=== PATIENT | female | born 1955 | race African-American/Black ===

== ENCOUNTER 2025-02-04 00:47 | Day surgery (SDC) | payer MEDICARE, SELFPAY ==
[2025-01-13 15:02] VITALS: BMI 25.9
--- OUTSIDE RECORDS SUMMARY | 2025-01-24 02:41 | XMS_ITS | CONTINUITY OF CARE DOCUMENT ---
Author Name dario bishop Address Unknown Organization [facility] Address [address] [place] [address] [address] [place] [address] Phone [phone] Care Team Providers Care Workers Compensation Claims Assistant Name Role Phone Boogie DINERO, Patito Unavailable IVÁN DAVIS MD Unavailable IVÁN DAVIS MD Unavailable PROBLEMS Condition Status Date Provider Notes GASTROESOPHAGEAL REFLUX DISEASE active [facility] CORONARY ARTERY DISEASE, FAM KAYLEE HX active [facility] FATHER PASSED AT AGE 60 YEARS HYPERLIPIDEMIA active [facility] DIABETES MELLITUS active [facility] DIAPHORESIS active [facility] CHEST PAIN-RESOLVED. NEG NUC , EF 65% 02/22 active ? Patito Hyman MD HYPERTENSION- MILD LVH, DIASTOLIC DYSFUNCTION, EF 65% 02/22 active ? Patito Hyman MD SYNCOPE NL ECHO AND STRESS T EST IN 07/25 active Patito Hyman MD DEPRESSION LEXAPRO 20 MG active Patito caceres MD ENCOUNTERS Date Type Provider Location Encounter Diag nosis - In-person encounter Office Visit Pat[facility] SYNCOPE NL ECHO AND STRESS TEST IN 07/25DEPRESSION LEXAPRO 20 MG - In-person encounter Office Visit Patito Hyman MD [facility] CHEST PAIN-RESOLVED. NEG NUC, EF 65% 02/22HYPERTENSION- MILD LVH, DIASTOLIC DYSFUNCTION, EF 65% 02/22DEPRESSION LEXAPRO 20 MG VITAL SIGNS Date Observation Value Provider pulse rate 84 /min Mally Elva oxygen saturation, oximetry 97 % Mally Elva respiratory rate E&M 19 /min Mally Elva weight E&M 207 [lb_av] Mally Elva blood pressure, diastolic 73 mm[Hg] Fe josé luis [place] blood pressure, systolic 109 mm[Hg] Fel icia Elva blood pressure, diastolic 78 mm[Hg] Ca rol Ab blood pressure, systolic 127 mm[Hg] Car mukesh MannAb pulse rate 97 /min Kelly MannAb oxygen saturation, oximetry 98 % Kelly MannAb respiratory rate E&M 20 /min Kelly Zepeda ryanermann weight E&M 206 [lb_av] Kelly Ab ALLERGIES Allergy Name Onset Date Reaction Criticality Status PREDNISONE High Criticality active LIDOCAINE High Criticality active HISTORY OF MEDICATION USE Medication Status Instructions Dates Provider Indications Com ments LEXAPRO 20 MG ORAL TABLET active ONE TAB. DAILY Patito Hyman MD POTASSIUM CHLORIDE KEVEN ER 20 MEQ ORAL TABLET EXTENDED RELEASE active ONE TAB. 2 TIMES DAILY Kelly Berger GLIMEPIRIDE 4 MG ORAL TABLET active ONE TAB DAILY Lucinda Cape CRESTOR 10 MG ORAL TABLET active ONE TAB. DAILY Patito Hyman MD LISINOPRIL 40 MG ORAL TABLET active ONE TAB. DAILY Lucinda [facility] METFORMIN HCL 500 MG ORAL TABLET completed ONE TAB TWICE DAILY - Kelly Berger HYDROCHLOROTHIAZIDE 25 MG ORAL TABLET active ONE TAB DAILY Lucinda Cape FAMOTIDINE 40 MG ORAL TABLET active ONE TAB. DAILY Lucinda Cape ASPIRIN 81 MG ORAL TABLET active ONE TAB. DAILY Lucinda Cape SOCIAL HISTORY Date Observation Value Provider social history reviewed E&M reviewed Patito Hyman MD social history E&M Marital Status: Divorc ed Christy Martinez RN alcohol use, average drinks per day none Christy Martinez RN physical exercise, f requency, days per week no Christy Martinez RN drug use none Christy todd RN smoking status Non-Smoker Christywest argueta RN social history reviewed E&M reviewed Christy Martinez RN MENTAL STATUS Date Observation Value Provider assessment of judgme nt and insight E&M Alert and oriented to time, place and person. Mood and affect are normal. Patito Hyman MD assessment of judgme nt and insight E&M Alert and oriented to time, place and person. Mood and affect are normal. Christy Martinez RN INSURANCE PROVIDERS Payer name Policy type / Coverage type [place] red green party ID [employer] MEDICARE ADVANTAGE ([facility] COMPLETE PPO) Other [id number] TREATMENT PLAN Date Name Performer routine f/u : H er updated medication list for this problem includes: Famotidine 40 Mg Tabs (Famotidine) ..... One tab. daily BP today: 109/73 Prior BP: 127/78 (04/06/2008) D iscussed lifestyle modifications, diet, antacids/medications, and preventive measures. Handout provided. Patito Hyman MD routine f/u : H er updated medication list for this problem includes: Aspirin 81 Mg Tabs (Aspirin) ..... One tab. daily Lisinopril 40 Mg Tabs (Lisinopril) ..... One tab. daily BP today: 109/73 Prior BP: 127/78 (04/06/2008) N uclear Stress Findings: 1. Normal exercise capacity 2 . Normal hemodynamic response to exercise 3 . No diagnostic ST or T changes 4 . No significant arrhythmias 5 . There is no evidence for exercise-induced myocardial ischemia 6 . Resting BP = 122/84 Max BP = 166/74 % Max HR achieved = 95 % METs achieved = 6.0 7 . Small inferoapical defect probably secondary to diaphraghmatic attenuation (03/16/2008) E chocardiogram: The left ventricular chamber size is normal. W all thickness is increased consistent with mild concentric left ventricular hypertrophy. T here is E: A reversal of mitral inflow velocities consistent with diastolic dysfunction. L V EF is estimated at 65%. N o clinically significant valvular abnormalities. M inimal tricuspid regurgitation. (03/16/2008) Patito Hyman MD routine f/u Patito Hyman MD routine f/u : H er updated medication list for this problem includes: Aspirin 81 Mg Tabs (Aspirin) ..... One tab. daily Hydrochlorothiazide 25 Mg Tabs (Hydrochlorothiazide) ..... One tab daily Lisinopril 40 Mg Tabs (Lisinopril) ..... One tab. daily BP today: 109/73 Prior BP: 127/78 (04/06/2008) N uclear Stress Findings: 1. Normal exercise capacity 2 . Normal hemodynamic response to exercise 3 [address] or T changes 4 . No significant arrhythmias 5 . There is no evidence for exercise-induced myocardial ischemia 6 . Resting BP = 122/84 Max BP = 166/74 % Max HR achieved = 95 % METs achieved = 6.0 7 . Small inferoapical defect probably secondary to diaphraghmatic attenuation (03/16/2008) E chocardiogram: The left ventricular chamber size is normal. W all thickness is increased consistent with mild concentric left ventricular hypertrophy. T here is E: A reversal of mitral inflow velocities consistent with diastolic dysfunction. L V EF is estimated at 65%. N o clinically significant valvular abnormalities. M inimal tricuspid regurgitation. (03/16/2008) Patito Hyman MD F/U: T he following medications were removed from the medication list: Metformin Hcl 500 Mg Tabs (Metformin hcl) ..... One tab twice daily Her updated medication list for this problem includes: Aspirin 81 Mg Tabs (Aspirin) ..... One tab. daily Lisinopril 40 Mg Tabs (Lisinopril) ..... One tab. daily Glimepiride 4 Mg Tabs (Glimepiride) ..... One tab daily BP today: 127/78 Prior BP: / () Patito Hyman MD F/U Patito Hyman MD F/U: H er updated medication list for this problem includes: Aspirin 81 Mg Tabs (Aspirin) ..... One tab. daily Hydrochlorothiazide 25 Mg Tabs (Hydrochlorothiazide) ..... One tab daily Lisinopril 40 Mg Tabs (Lisinopril) ..... One tab. daily BP today: 127/78 Patito Hyman MD F/U: H er updated medication list for this problem includes: Aspirin 81 Mg Tabs (Aspirin) ..... One tab. daily Lisinopril 40 Mg Tabs (Lisinopril) ..... One tab. daily BP today: 127/78 Prior BP: / () N uclear Stress Findings: 1. Normal exercise capacity 2 . Normal hemodynamic response to exercise 3 . No [address] or T changes 4 . No significant arrhythmias 5 . There is no evidence for exercise-induced myocardial ischemia 6 . Resting BP = 122/84 Max BP = 166/74 % Max HR achieved = 95 % METs achieved = 6.0 7 . Small inferoapical defect probably secondary to diaphraghmatic attenuation (03/16/2008) E chocardiogram: The left ventricular chamber size is normal. W all thickness is increased consistent with mild concentric left ventricular hypertrophy. T here is E: A reversal of mitral inflow velocities consistent with diastolic dysfunction. L V EF is estimated at 65%. N o clinically significant valvular abnormalities. M inimal tricuspid regurgitation. (03/16/2008) Patito Hyman MD Date Name Complete Echo
--- OUTSIDE RECORDS SUMMARY | 2025-01-24 02:41 | XMS_ITS | Data Portability ---
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 Plan of Treatment Reminders Order Date Submit Date Provider Last Modified By Organization Details Last Modified Time Details Appointments None recorded. Lab None recorded. Referral nephrologis t referral - secondary hyperparath yroidism 2022 023 [place], [address], [address], [place], [address], 3 15:55:16 Procedures None recorded. Surgeries None recorded. Imaging None recorded. Medication Orders Ozempic 1 mg/dose (4 mg/3 mL) subcutaneou s pen injector 2022 023 GUSTABO Not available 3 12:22:27 Jardiance 25 mg tablet 2022 023 GUSTABO Not available 3 12:22:44 Tresiba FlexTouch U-100 insulin 100 unit/mL (3 mL) subcutaneou s pen 2022 023 GUSTABO Not available 3 12:23:37 glimepiride 1 mg tablet 2022 023 Not available 3 12:25:06 OneTouch Verio test strips 2022 023 GUSTABO Not available 3 12:27:54 atorvastati n 40 mg tablet 2022 023 GUSTABO Not available 12:26:20 Patient TargetsNo targets recorded. Patient InstructionsNo instructions recorded. 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 0 high Diabe nevin Scree emanuel Crite dillon: <5.7% Consi stent with absen ce of diabe nevin 5.7-6 .4% Consi stent with incre ased risk for diabe nevin (pred iabet es) >OR=6 .5% Consi stent with diabe nevin REFER ENCE: Diabe nevin Care 2016, 39(Winter ppl.1 ):s13 -s22 Not Available [facility] (Lab) [address] [place], [address], 12/06/2021 19:39:44 12/07/19 22 12/06/2021 TSH thyroid-stim ulating hormone 0.606 uIU/m L 0.465- 4.680 Not Available [facility] (Lab) [address] [place], [address], 12/06/2021 17:40:26 12/07/19 22 12/06/2021 T4 FREE free T4 1.41 NG/dL 0.78-2 .19 Not Available [facility] (Lab) [address] [place], [address], 12/06/2021 17:31:28 12/07/19 22 12/06/2021 MICRO ALBUM N RNDM W/CRE AT RATIO ur creat 153.30 mg/dL REFER ENCE RANGE NOT ESTAB LISHE D FOR RANDO M URINE CREAT ININE Not Available [facility] (Lab) [address] [place], [address], 12/06/2021 17:26:24 12/07/19 22 12/06/2021 MICRO ALBUM N RNDM W/CRE AT RATIO microalbumin , urine 6.6 mg/L 0.0-16 .6 Not Available [facility] (Lab) [address] [place], [address], 12/06/2021 17:26:24 12/07/19 22 12/06/2021 MICRO ALBUM N RNDM W/CRE AT RATIO microalbumin /creatinine ratio 4 mcg/m g 0-29 THE AMERI CAN DIABE NEVIN ASSOC IATIO N DEFIN ES ABNOR MALIT IES IN ALBUM IN EXCRE TION FOLLO WS: CATEG ORY RESUL T (MCG/ MG CREAT ININE ) RENATO L <30 MICRO ALBUM INURI A 30-29 9 CLINI ADARSH ALBUM INURI A > OR = 300 THE ADA RECOM MENDS THAT 2 OF 2 SPECI MENS COLLE CTED WITHI N A 3- TO 6-MON TH PERIO D BE ABNOR MAL BEFOR E CONSI ZACARIAS G A PATIE NT TO HAVE CROSS ED ONE OF THESE DIAGN OSTIC THRES HOLDS . REFER ENCE: DIABE NEVIN CARE, VOL. 26: S94-S , 2002 Not Available [facility] (Lab) [address] [place], [address], 12/06/2021 17:26:24 12/07/19 22 12/06/2021 COMPR EHENS JÚNIOR METAB OLIC PANEL sodium 137 mmol/ L 137-14 5 Not Available [facility] (Lab) [address] [place], [address], 12/06/2021 17:10:51 12/07/19 22 12/06/2021 COMPR EHENS JÚNIOR METAB OLIC PANEL potassium 4.2 mmol/ L 3.5-5. 1 Not Available [facility] (Lab) [address] [place], [address], 12/06/2021 17:10:51 12/07/19 22 12/06/2021 COMPR EHENS JÚNIOR METAB OLIC PANEL chloride 100 mmol/ L 98-107 Not Available [facility] (Lab) [address] [place], [address], 12/06/2021 17:10:51 12/07/19 22 12/06/2021 COMPR EHENS JÚNIOR METAB OLIC PANEL carbon dioxide 26 mmol/ L 22-30 Not Available [facility] (Lab) [address] [place], [address], 12/06/2021 17:10:51 12/07/19 22 12/06/2021 COMPR EHENS JÚNIOR METAB OLIC PANEL anion gap 15.2 mmol/ L 14-22 Not Available [facility] (Lab) [address] [place], [address], 12/06/2021 17:10:51 12/07/19 22 12/06/2021 COMPR EHENS JÚNIOR METAB OLIC PANEL glucose 187 mg/dL 70-99 high Not Available [facility] (Lab) [address] [place], [address], 12/06/2021 17:10:51 12/07/19 22 12/06/2021 COMPR EHENS JÚNIOR METAB OLIC PANEL BUN 15 mg/dL 8-19 Not Available [facility] (Lab) [address] [place], [address], 12/06/2021 17:10:51 12/07/19 22 12/06/2021 COMPR EHENS JÚNIOR METAB OLIC PANEL creatinine 1.20 mg/dL 0.66-1 .25 Not Available [facility] (Lab) [address] [place], [address], 12/06/2021 17:10:51 12/07/19 22 12/06/2021 COMPR EHENS JÚNIOR METAB OLIC PANEL GFR 54 Refer ence Range : Rickman ge GFR Healt hy Adult : >60 mL/mi n/1.7 3 m2 Chron ic Kidne y Disea se: 15-60 mL/mi n/1.7 3 m2 Kidne y Failu re: <15/m L/min /1.73 m2 www.n iddk. nih.g ov The MDRD study equat ion has not been valid ated in child kesha <18 years of age; pregn ant women ; the elder ly >85 years of age; or in some racia l or ethni c subgr oups, such as Hispa nics. Outsi de the valid ated devon eters , estim ated GFR is less accur ate, requi ring clini adarsh judgm ent on a case- by-ca se basis . Clini adarsh inter preta tion for other races and ages must be made by the clini trae. The MDRD study equat ion has not been valid ated for the evalu ation of serum creat inine relat ed to nutri archie l statu s or medic ation usage . For perso ns <18 years of age, a pedia tric GFR calcu lator is avail able on the [facility] websi te: https ://ww w.kid yony.o rg/pr ofess ional s/kdo qi/gf r_cal culat or Not Available [facility] (Lab) [address] [place], [address], 12/06/2021 17:10:51 12/07/19 22 12/06/2021 COMPR EHENS JÚNIOR METAB OLIC PANEL alkaline phosphatase 105 U/L 38-126 Not Available [facility] (Lab) [address] [place], [address], 12/06/2021 17:10:51 12/07/19 22 12/06/2021 COMPR EHENS JÚNIOR METAB OLIC PANEL alanine aminotransfe rase 16 U/L 0-35 Not Available [facility] (Lab) [address] [place], [address], 12/06/2021 17:10:51 12/07/19 22 12/06/2021 COMPR EHENS JÚNIOR METAB OLIC PANEL aspartate aminotransfe rase 28 U/L 15-37 Not Available [facility] (Lab) [address] [place], [address], 12/06/2021 17:10:51 12/07/19 22 12/06/2021 COMPR EHENS JÚNIOR METAB OLIC PANEL bilirubin, total 0.60 mg/dL 0.20-1 .30 Not Available [facility] (Lab) [address] [place], [address], 12/06/2021 17:10:51 12/07/19 22 12/06/2021 COMPR EHENS JÚNIOR METAB OLIC PANEL calcium 9.1 mg/dL 8.4-10 .2 Not Available [facility] (Lab) [address] [place], [address], 12/06/2021 17:10:51 12/07/19 22 12/06/2021 COMPR EHENS JÚNIOR METAB OLIC PANEL total protein 8.2 g/dL 6.3-8. 2 Not Available [facility] (Lab) [address] [place], [address], 12/06/2021 17:10:51 12/07/19 22 12/06/2021 COMPR EHENS JÚNIOR METAB OLIC PANEL albumin 4.1 g/dL 3.0-4. 4 Not Available [facility] (Lab) [address] [place], [address], 12/06/2021 17:10:51 12/07/19 22 12/06/2021 COMPR EHENS JÚNIOR METAB OLIC PANEL globulin 4.1 g/dL 2.6-4. 2 Not Available [facility] (Lab) [address] [place], [address], 12/06/2021 17:10:51 12/07/19 22 12/06/2021 COMPR EHENS JÚNIOR METAB OLIC PANEL A/G ratio 1.0 ratio 1.0-2. 0 Not Available [facility] (Lab) [address] [place], [address], 12/06/2021 17:10:51 12/07/19 22 12/06/2021 LIPID PANEL cholesterol 150 mg/dL 140-19 9 NIH SANDIP NSUS RECOM MENDA TION FOR PRINCE STERO L: ADULT CHILD LOW RISK: <200 <170 BORDE RLINE : <200- 239 ----- HIGH RISK: >240 >200 Not Available [facility] (Lab) [address] [place], [address], 12/06/2021 17:10:45 12/07/19 22 12/06/2021 LIPID PANEL triglyceride s 120 mg/dL 0-150 NIH SANDIP NSUS REPOR T RECOM MENDA TION FOR TRIGL YCERI JOSE ARMANDO: ADULT CHILD LOW RISK: <150 ----- BODER LINE: 150-1 99 ----- HIGH RISK: >200 ----- Not Available [facility] (Lab) [address] [place], [address], 12/06/2021 17:10:45 12/07/19 22 12/06/2021 LIPID PANEL HDL cholesterol 47 mg/dL 40- Not Available [facility] (Lab) [address] [place], [address], 12/06/2021 17:10:45 12/07/19 22 12/06/2021 LIPID PANEL LDL cholesterol, calculated 79 mg/dL 0-130 NIH SANDIP NSUS REPOR T RECOM MENDA TIONS FOR LDL: ADULT CHILD LOW RISK <130 <110 (OPTI MAL LDL) <100 ----- BORDE RLINE : 130-1 59 ----- HIGH RISK: >160 >130 A TRIGL YCERI DE RESUL T >400 INVAL IDATE S THE CALCU LATIO N FOR LDL FRACT IONAT ION - THE LDL RESUL T WILL NOT BE REPOR BEST. Not Available [facility] (Lab) [address] [place], [address], 12/06/2021 17:10:45 12/06/19 23 12/05/2022 PARAT HY.HO RM(PT H)INT ACT-W /O CA intact parathyroid hormone 135.0 pg/mL 24.0-7 8.0 high Pleas e note new refer ence range effec tive 09/13 . Not Available [facility] (Lab) [address] [place], [address], 12/05/2022 11:50:57 12/06/19 23 12/05/2022 VITAM IN D 25-HY DROXY [id number] 44.6 NG/mL 30-100 Vitam in D Statu s: Defic ient: <20 ng/mL Insuf ficie nt: 20-29 ng/mL Suffi cient : 30-10 0 ng/mL Not Available [facility] (Lab) [address] [place], [address], 12/05/2022 11:51:11 12/06/19 23 12/05/2022 COMPR EHENS JÚNIOR METAB OLIC PANEL sodium 137 mmol/ L 137-14 5 Not Available [facility] (Lab) [address] [place], [address], 12/05/2022 11:58:25 12/06/19 23 12/05/2022 COMPR EHENS JÚNIOR METAB OLIC PANEL potassium 4.2 mmol/ L 3.5-5. 1 Not Available [facility] (Lab) [address] [place], [address], 12/05/2022 11:58:25 12/06/19 23 12/05/2022 COMPR EHENS JÚNIOR METAB OLIC PANEL chloride 101 mmol/ L 98-107 Not Available [facility] (Lab) [address] [place], [address], 12/05/2022 11:58:25 12/06/19 23 12/05/2022 COMPR EHENS JÚNIOR METAB OLIC PANEL carbon dioxide 29 mmol/ L 22-30 Not Available [facility] (Lab) [address] [place], [address], 12/05/2022 11:58:25 12/06/19 23 12/05/2022 COMPR EHENS JÚNIOR METAB OLIC PANEL anion gap 11.2 mmol/ L 14-22 low Not Available [facility] (Lab) [address] [place], [address], 12/05/2022 11:58:25 12/06/19 23 12/05/2022 COMPR EHENS JÚNIOR METAB OLIC PANEL glucose 108 mg/dL 70-99 high Not Available [facility] (Lab) [address] [place], [address], 12/05/2022 11:58:25 12/06/19 23 12/05/2022 COMPR EHENS JÚNIOR METAB OLIC PANEL BUN 16 mg/dL 8-19 Not Available [facility] (Lab) [address] [place], [address], 12/05/2022 11:58:25 12/06/19 23 12/05/2022 COMPR EHENS JÚNIOR METAB OLIC PANEL creatinine 1.21 mg/dL 0.66-1 .25 Not Available [facility] (Lab) [address] [place], [address], 12/05/2022 11:58:25 12/06/19 23 12/05/2022 COMPR EHENS JÚNIOR METAB OLIC PANEL GFR 54 Refer ence Range : Rickman ge GFR Healt hy Adult : >60 mL/mi n/1.7 3 m2 Chron ic Kidne y Disea se: 15-60 mL/mi n/1.7 3 m2 Kidne y Failu re: <15/m L/min /1.73 m2 www.n iddk. nih.g ov The MDRD study equat ion has not been valid ated in child kesha <18 years of age; pregn ant women ; the elder ly >85 years of age; or in some racia l or ethni c subgr oups, such as Hispa nics. Outsi de the valid ated devon eters , estim ated GFR is less accur ate, requi ring clini adarsh judgm ent on a case- by-ca se basis . Clini adarsh inter preta tion for other races and ages must be made by the clini trae. The MDRD study equat ion has not been valid ated for the evalu ation of serum creat inine relat ed to nutri archie l statu s or medic ation usage . For perso ns <18 years of age, a pedia tric GFR calcu lator is avail able on the [facility] websi te: https ://ww w.kid yony.o rg/pr ofess ional s/kdo qi/gf r_cal culat or Not Available [facility] (Lab) [address] [place], [address], 12/05/2022 11:58:25 12/06/19 23 12/05/2022 COMPR EHENS JÚNIOR METAB OLIC PANEL alkaline phosphatase 89 U/L 38-126 Not Available [facility] (Lab) [address] [place], [address], 12/05/2022 11:58:25 12/06/19 23 12/05/2022 COMPR EHENS JÚNIOR METAB OLIC PANEL alanine aminotransfe rase 49 U/L 0-35 high Not Available [facility] (Lab) [address] [place], [address], 12/05/2022 11:58:25 12/06/19 23 12/05/2022 COMPR EHENS JÚNIOR METAB OLIC PANEL aspartate aminotransfe rase 52 U/L 15-37 high Not Available [facility] (Lab) [address] [place], [address], 12/05/2022 11:58:25 12/06/19 23 12/05/2022 COMPR EHENS JÚNIOR METAB OLIC PANEL bilirubin, total 0.80 mg/dL 0.20-1 .30 Not Available [facility] (Lab) [address] [place], [address], 12/05/2022 11:58:25 12/06/19 23 12/05/2022 COMPR EHENS JÚNIOR METAB OLIC PANEL calcium 9.3 mg/dL 8.4-10 .2 Not Available [facility] (Lab) [address] [place], [address], 12/05/2022 11:58:25 12/06/19 23 12/05/2022 COMPR EHENS JÚNIOR METAB OLIC PANEL total protein 8.4 g/dL 6.3-8. 2 high Not Available [facility] (Lab) [address] [place], [address], 12/05/2022 11:58:25 12/06/19 23 12/05/2022 COMPR EHENS JÚNIOR METAB OLIC PANEL albumin 4.2 g/dL 3.0-4. 4 Not Available [facility] (Lab) [address] [place], [address], 12/05/2022 11:58:25 12/06/19 23 12/05/2022 COMPR EHENS JÚNIOR METAB OLIC PANEL globulin 4.2 g/dL 2.6-4. 2 Not Available [facility] (Lab) [address] [place], [address], 12/05/2022 11:58:25 12/06/19 23 12/05/2022 COMPR EHENS JÚNIOR METAB OLIC PANEL A/G ratio 1.0 ratio 1.0-2. 0 Not Available [facility] (Lab) [address] [place], [address], 12/05/2022 11:58:25 12/06/19 23 12/05/2022 LIPID PANEL cholesterol 147 mg/dL 140-19 9 NIH SANDIP NSUS RECOM MENDA TION FOR PRINCE STERO L: ADULT CHILD LOW RISK: <200 <170 BORDE RLINE : <200- 239 ----- HIGH RISK: >240 >200 Not Available [facility] (Lab) [address] [place], [address], 12/05/2022 11:58:31 12/06/19 23 12/05/2022 LIPID PANEL triglyceride s 118 mg/dL 0-150 NIH SANDIP NSUS REPOR T RECOM MENDA TION FOR TRIGL YCERI JOSE ARMANDO: ADULT CHILD LOW RISK: <150 ----- BODER LINE: 150-1 99 ----- HIGH RISK: >200 ----- Not Available [facility] (Lab) [address] [place], [address], 12/05/2022 11:58:31 12/06/19 23 12/05/2022 LIPID PANEL HDL cholesterol 50 mg/dL 40- Not Available [facility] (Lab) [address] [place], [address], 12/05/2022 11:58:31 12/06/19 23 12/05/2022 LIPID PANEL LDL cholesterol, calculated 73 mg/dL 0-130 NIH SANDIP NSUS REPOR T RECOM MENDA TIONS FOR LDL: ADULT CHILD LOW RISK <130 <110 (OPTI MAL LDL) <100 ----- BORDE RLINE : 130-1 59 ----- HIGH RISK: >160 >130 A TRIGL YCERI DE RESUL T >400 INVAL IDATE S THE CALCU LATIO N FOR LDL FRACT IONAT ION - THE LDL RESUL T WILL NOT BE REPOR BEST. Not Available [facility] (Lab) [address] [place], [address], 12/05/2022 11:58:31 12/06/19 23 12/05/2022 PHOSP HORUS phosphorus 4.1 mg/dL 2.5-4. 5 Not Available [facility] (Lab) [address] [place], [address], 12/05/2022 11:58:33 12/06/19 23 12/05/2022 T4 FREE free T4 1.04 NG/dL 0.78-2 .19 Not Available [facility] (Lab) [address] [place], [address], 12/05/2022 12:02:43 12/06/19 23 12/05/2022 TSH thyroid-stim ulating hormone 1.260 uIU/m L 0.465- 4.680 Not Available [facility] (Lab) [address] [place], [address], 12/05/2022 12:06:04 12/06/19 23 12/05/2022 HEMOG LOBIN A1C HA1C 6.4 % 4.0-6. 0 high Diabe nevin Scree emanuel Crite dillon: <5.7% Consi stent with absen ce of diabe nevin 5.7-6 .4% Consi stent with incre ased risk for diabe nevin (pred iabet es) >OR=6 .5% Consi stent with diabe nevin REFER ENCE: Diabe nevin Care 2016, 39(Winter ppl.1 ):s13 -s22 Not Available [facility] (Lab) [address] [place], [address], 12/05/2022 13:49:15 12/06/19 23 12/05/2022 MICRO ALBUM N RNDM W/CRE AT RATIO ur creat 83.15 mg/dL REFER ENCE RANGE NOT ESTAB LISJONATHAN D FOR RON M URINE CREAT ININE Not Available [facility] (Lab) [address] [place], [address], 12/05/2022 14:25:34 12/06/19 23 12/05/2022 MICRO ALBUM N RNDM W/CRE AT RATIO microalbumin , urine <6.0 mg/L 0.0-16 .6 Not Available [facility] (Lab) [address] [place], [address], 12/05/2022 14:25:34 04/07/20 23 04/07/2023 MICRO ALBUM N RNDM W/CRE AT RATIO ur creat 173.53 mg/dL REFER ENCE RANGE NOT ESTAB LISHE D FOR SUKUMARO M URINE CREAT ININE Not Available [facility] (Lab) [address] [place], [address], 04/07/2023 14:09:19 04/07/20 23 04/07/2023 MICRO ALBUM N RNDM W/CRE AT RATIO microalbumin , urine <6.0 mg/L 0.0-16 .6 Not Available [facility] (Lab) [address] [place], [address], 04/07/2023 14:09:19 04/07/20 23 04/07/2023 PARAT HY.HO RM(PT H)INT ACT-W /O CA intact parathyroid hormone 174.7 pg/mL 24.0-7 8.0 high Pleas e note new refer ence range effec tive 09/13 . Not Available [facility] (Lab) [address] [place], [address], 04/07/2023 14:36:25 04/07/20 23 04/07/2023 COMPR EHENS JÚNIOR METAB OLIC PANEL sodium 141 mmol/ L 137-14 5 Not Available [facility] (Lab) [address] [place], [address], 04/07/2023 14:43:28 04/07/20 23 04/07/2023 COMPR EHENS JÚNIOR METAB OLIC PANEL potassium 3.5 mmol/ L 3.5-5. 1 Not Available [facility] (Lab) [address] [place], [address], 04/07/2023 14:43:28 04/07/20 23 04/07/2023 COMPR EHENS JÚNIOR METAB OLIC PANEL chloride 103 mmol/ L 98-107 Not Available [facility] (Lab) [address] [place], [address], 04/07/2023 14:43:28 04/07/20 23 04/07/2023 COMPR EHENS JÚNIOR METAB OLIC PANEL carbon dioxide 28 mmol/ L 22-30 Not Available [facility] (Lab) [address] [place], [address], 04/07/2023 14:43:28 04/07/20 23 04/07/2023 COMPR EHENS JÚNIOR METAB OLIC PANEL anion gap 13.5 mmol/ L 14-22 low Not Available [facility] (Lab) [address] [place], [address], 04/07/2023 14:43:28 04/07/20 23 04/07/2023 COMPR EHENS JÚNIOR METAB OLIC PANEL glucose 117 mg/dL 70-99 high Not Available [facility] (Lab) [address] [place], [address], 04/07/2023 14:43:28 04/07/20 23 04/07/2023 COMPR EHENS JÚNIOR METAB OLIC PANEL BUN 19 mg/dL 8-19 Not Available [facility] (Lab) [address] [place], [address], 04/07/2023 14:43:28 04/07/20 23 04/07/2023 COMPR EHENS JÚNIOR METAB OLIC PANEL creatinine 1.33 mg/dL 0.66-1 .25 high Not Available [facility] (Lab) [address] [place], [address], 04/07/2023 14:43:28 04/07/20 23 04/07/2023 COMPR EHENS JÚNIOR METAB OLIC PANEL GFR 48 Refer ence Range : Rickman ge GFR Healt hy Adult : >60 mL/mi n/1.7 3 m2 Chron ic Kidne y Disea se: 15-60 mL/mi n/1.7 3 m2 Kidne y Failu re: <15/m L/min /1.73 m2 www.n iddk. nih.g ov The MDRD study equat ion has not been valid ated in child kesha <18 years of age; pregn ant women ; the elder ly >85 years of age; or in some racia l or ethni c subgr oups, such as Hispa nics. Outsi de the valid ated devon eters , estim ated GFR is less accur ate, requi ring clini adarsh judgm ent on a case- by-ca se basis . Clini adarsh inter preta tion for other races and ages must be made by the clini trae. The MDRD study equat ion has not been valid ated for the evalu ation of serum creat inine relat ed to nutri archie l statu s or medic ation usage . For perso ns <18 years of age, a pedia tric GFR calcu lator is avail able on the [facility] websi te: https ://clarita bhakta.o skip/pr ofess ional s/kdo qi/gf r_cal culat or Not Available [facility] (Lab) [address] [place], [address], 04/07/2023 14:43:28 04/07/20 23 04/07/2023 COMPR EHENS JÚNIOR METAB OLIC PANEL alkaline phosphatase 83 U/L 38-126 Not Available [facility] (Lab) [address] [place], [address], 04/07/2023 14:43:28 04/07/20 23 04/07/2023 COMPR EHENS JÚNIOR METAB OLIC PANEL alanine aminotransfe rase 25 U/L 0-35 Not Available [facility] (Lab) [address] [place], [address], 04/07/2023 14:43:28 04/07/20 23 04/07/2023 COMPR EHENS JÚNIOR METAB OLIC PANEL aspartate aminotransfe rase 35 U/L 15-37 Not Available [facility] (Lab) [address] [place], [address], 04/07/2023 14:43:28 04/07/20 23 04/07/2023 COMPR EHENS JÚNIOR METAB OLIC PANEL bilirubin, total 0.90 mg/dL 0.20-1 .30 Not Available [facility] (Lab) [address] [place], [address], 04/07/2023 14:43:28 04/07/20 23 04/07/2023 COMPR EHENS JÚNIOR METAB OLIC PANEL calcium 9.2 mg/dL 8.4-10 .2 Not Available [facility] (Lab) [address] [place], [address], 04/07/2023 14:43:28 04/07/20 23 04/07/2023 COMPR EHENS JÚNIOR METAB OLIC PANEL total protein 7.8 g/dL 6.3-8. 2 Not Available [facility] (Lab) [address] [place], [address], 04/07/2023 14:43:28 04/07/20 23 04/07/2023 COMPR EHENS JÚNIOR METAB OLIC PANEL albumin 4.1 g/dL 3.0-4. 4 Not Available [facility] (Lab) [address] [place], [address], 04/07/2023 14:43:28 04/07/20 23 04/07/2023 COMPR EHENS JÚNIOR METAB OLIC PANEL globulin 3.7 g/dL 2.6-4. 2 Not Available [facility] (Lab) [address] [place], [address], 04/07/2023 14:43:28 04/07/20 23 04/07/2023 COMPR EHENS JÚNIOR METAB OLIC PANEL A/G ratio 1.1 ratio 1.0-2. 0 Not Available [facility] (Lab) [address] [place], [address], 04/07/2023 14:43:28 04/07/20 23 04/07/2023 PHOSP HORUS phosphorus 3.5 mg/dL 2.5-4. 5 Not Available [facility] (Lab) [address] [place], [address], 04/07/2023 14:43:33 04/07/20 23 04/07/2023 LIPID PANEL cholesterol 146 mg/dL 140-19 9 NIH SANDIP NSUS RECOM MENDA TION FOR PRINCE STERO L: ADULT CHILD LOW RISK: <200 <170 BORDE RLINE : <200- 239 ----- HIGH RISK: >240 >200 Not Available [facility] (Lab) [address] [place], [address], 04/07/2023 14:43:38 04/07/20 23 04/07/2023 LIPID PANEL triglyceride s 79 mg/dL 0-150 NIH SANDIP NSUS REPOR T RECOM MENDA TION FOR TRIGL YCERI JOSE ARMANDO: ADULT CHILD LOW RISK: <150 ----- BODER LINE: 150-1 99 ----- HIGH RISK: >200 ----- Not Available [facility] (Lab) [address] [place], [address], 04/07/2023 14:43:38 04/07/20 23 04/07/2023 LIPID PANEL HDL cholesterol 47 mg/dL 40- Not Available [facility] (Lab) [address] [place], [address], 04/07/2023 14:43:38 04/07/20 23 04/07/2023 LIPID PANEL LDL cholesterol, calculated 83 mg/dL 0-130 [facility] SANDIP NSUS REPOR T RECOM MENDA TIONS FOR LDL: ADULT CHILD LOW RISK <130 <110 (OPTI MAL LDL) <100 ----- BORDE RLINE : 130-1 59 ----- HIGH RISK: >160 >130 A TRIGL YCERI DE RESUL T >400 INVAL IDATE S THE CALCU LATIO N FOR LDL FRACT IONAT ION - THE LDL RESUL T WILL NOT BE REPOR BEST. Not Available [facility] (Lab) [address] [place], [address], 04/07/2023 14:43:38 04/07/20 23 04/07/2023 HEMOG LOBIN A1C HA1C 6.3 % 4.0-6. 0 high Diabe nevin Nikolase emanuel Cristeffen idllon: <5.7% Consi stent with absen ce of diabe nevin 5.7-6 .4% Consi stent with incre ased risk for diabe nevin (pred iabet es) >OR=6 .5% Consi stent with diabe nevin REFER ENCE: Diabe nevin Care 2016, 39(Winter ppl.1 ):s13 -s22 Not Available [facility] (Lab) [address] [place], [address], 04/07/2023 14:51:58 04/07/20 23 04/07/2023 T4 FREE free T4 1.20 NG/dL 0.78-2 .19 Not Available [facility] (Lab) [address] [place], [address], 04/07/2023 15:24:35 04/07/20 23 04/07/2023 TSH thyroid-stim ulating hormone 0.417 uIU/m L 0.465- 4.680 low Not Available [facility] (Lab) [address] [place], [address], 04/07/2023 15:25:39 04/07/20 23 04/07/2023 VITAM IN D 25-HY DROXY [id number] 31.1 NG/mL 30-100 Vitam in D Statu s: Defic ient: <20 ng/mL Insuf ficie nt: 20-29 ng/mL Suffi cient : 30-10 0 ng/mL Not Available [facility] (Lab) [address] [place], [address], 04/07/2023 15:53:44 04/09/20 23 04/09/2023 CALCI UM 24 HR URINE ur calcm <1.0 mg/dL REFER ENCE RANGE NOT ESTAB THAIS Beltran FOR RON M URINE CALCI UM Not Available [facility] (Lab) [address] [place], [address], 04/09/2023 22:06:32 04/09/20 23 04/09/2023 CALCI UM 24 HR URINE tot vol 1900 mL 600-20 00 Not Available [facility] (Lab) [address] [place], [address], 04/09/2023 22:06:32 12/11/19 23 03/20/2022 DEXA, axial skele ton No observ ation record ed. [email or web address] [facility] [address] [place], [address], 12/25/2022 17:30:35 Result Notes None recorded. Problems Name Problem SNOMED Code Status Onset Date Resolution Date Notes Provider Name and Address Organization Details Recorded Time Vitamin D deficiency 69208649 Active 2021 Not Available [facility] 3 18:35:19 Dyslipidemia 679101005 Active 2021 Not Available [facility] 3 18:35:19 Type 2 diabetes mellitus 10545152 Active 2018 Not Available [facility] 3 18:35:19 Uncontrolled type 2 diabetes mellitus 849376678 Active 2021 Not Available [facility] 3 18:35:19 Essential hypertension 43195329 Active 2021 Not Available [facility] 3 18:35:19 Hyperparathyr oidism 99742812 Active 2021 Not Available [facility] 3 18:35:19 Candidiasis of vagina 99248686 Active 2021 Not Available [facility] 3 18:35:19 Well controlled type 2 diabetes mellitus 429744742 Active 2022 Ria Louise MD [address], [facility] [address], [place], [address] , [facility] [employer] [facility] 3 12:22:10 Chronic kidney disease 918499676 Active 2022 Ria Louise MD [address], [address], [place], [address] , [place] [facility] 12:25:18 Notes:Some problems listed i n Document: #[id number] could not be added to this patient's chart. Please review this document and add these problems to the patient's chart manually as needed. Problem Notes None recorded. Procedures Surgical History Date Name Laterality Status Provider Name and Address Organization Details Recorded Time parathyroidectomy completed Not Available [facility] 10/16/2022 18:34:45 Imaging Results None recorded. Procedure Notes None recorded. Medical Equipment None Reported. Allergies Allergen ID Allergen Name Allergen Category Reaction Reaction Severity Criticality Documentation Date Start Date Code Code System Note Provider Name and Address Organization Details Recorded Time 23815 prednison e medicatio n Not available Not available Not available 10/16/2022 8640 RxNorm Not Available [facility] 3 18:36:17 42034 lidocaine medicatio n Not available Not available Not available 10/16/2022 6387 RxNorm Not Available [facility] 3 18:36:17 47662 Lantus medicatio n Not available Not available Not available 10/16/2022 51896 1 RxNorm Not Available [facility] 3 18:36:17 Medications Name Sig Start Date Stop Date Status Note LastModified by Organization Details LastModified Time cyclobenzap rine 10 mg tablet TAKE 1 TABLET BY MOUTH AT BEDTIME NEEDED FOR MUSCLE SPASMS 12/10 completed Not Available Not Available Not Available amoxicillin 500 mg capsule 12/10 completed Not Available Not Available Not Available atorvastati n 40 mg tablet TAKE 1 TABLET BY MOUTH EVERY DAY active Not Available Not Available No t Available bupropion HCl SR 150 mg tablet,12 hr sustained-r elease TAKE 1 TABLET BY MOUTH TWICE A DAY WITH MEALS 12/10 completed Not Available Not Available Not Available carvedilol 25 mg tablet TAKE 1 TABLET BY MOUTH TWICE A DAY WITH FOOD active Not Available Not Available No t Available atorvastati n 20 mg tablet TAKE 1 TABLET BY MOUTH EVERY DAY active Not Available Not Available No t Available carvedilol 12.5 mg tablet TAKE 1 TABLET BY MOUTH TWICE DAILY active Not Available Not Available No t Available Child Aspirin 81 mg chewable tablet CHEW 1 TABLET(S) EVERY DAY BY ORAL ROUTE. active Not Available Not Available No t Available polyethylen e glycol 3350 17 gram oral powder packet TAKE 1 PACKET BY MOUTH DAILY. DISSOLVE IN 4-8 OZ OF LIQUID. 12/10 completed Not Available Not Available Not Available lisinopril 20 mg-hydrochl orothiazide 12.5 mg tablet TAKE 1 TABLET BY MOUTH EVERY DAY IN THE MORNING active Not Available Not Available No t Available azithromyci n 250 mg tablet 12/10 completed Not Available Not Available Not Available fluconazole 150 mg tablet TAKE ONE TABLET BY MOUTH NOW AND REPEAT IN 3 DAYS IF SYMPTOMS REMAIN 04/15 completed Not Available Not Available Not Available hydrocodone 5 mg-acetamin ophen 325 mg tablet TAKE 1 TABLET BY MOUTH TWICE A DAY NEEDED FOR PAIN 12/10 completed Not Available Not Available Not Available prazosin 1 mg capsule 12/10 completed Not Available Not Available Not Available lisinopril 20 mg tablet TAKE 1 TABLET BY MOUTH EVERY DAY IN THE MORNING 12/05 completed Not Available Not Available Not Available ondansetron HCl 4 mg tablet TAKE 1 TAB BY MOUTH EVERY 8 HOURS NEEDED FOR NAUSEA 12/10 completed Not Available Not Available Not Available sertraline 100 mg tablet TAKE 1 TABLET TWICE DAILY BEFORE MEALS 12/10 completed Not Available Not Available Not Available quetiapine 200 mg tablet TAKE 1 TABLET BY MOUTH AT BEDTIME 12/10 completed Not Available Not Available Not Available glipizide ER 5 mg tablet, extended release 24 hr 12/05 completed Not Available Not Available Not Available metronidazo le 500 mg tablet TAKE 1 TAB BY MOUTH 3 TIMES DAILY FOR 2 DAYS. active Not Available Not Available No t Available acetaminoph en 300 mg-codeine 30 mg tablet TAKE 1 TO 2 TABLETS BY MOUTH EVERY 4 TO 6 HOURS NEEDED FOR PAIN active Not Available Not Available No t Available omeprazole 40 mg capsule,del ayed release TAKE 1 CAPSULE(S ) EVERY DAY BY ORAL ROUTE FOR 30 DAYS. 12/10 completed Not Available Not Available Not Available tramadol 50 mg tablet TAKE 1 TABLET BY MOUTH TWICE A DAY NEEDED FOR PAIN 12/10 completed Not Available Not Available Not Available triamcinolo ne acetonide 0.1 % topical cream APPLY THIN FILM TO AFFECTED AREA(S) TWICE DAILY UNTIL HEALED active Not Available Not Available No t Available glimepiride 2 mg tablet TAKE 1 TABLET BY MOUTH TWICE A DAY WITH MEALS 04/15 completed Not Available Not Available Not Available glimepiride 1 mg tablet TAKE 1 TABLET BY MOUTH TWICE A DAY BEFORE MEALS active Not Available Not Available No t Available ofloxacin 0.3 % ear drops INSTILL 10 DROPS INTO BOTH EARS TWICE DAILY FOR 10 DAYS 04/15 completed Not Available Not Available Not Available potassium chloride ER 20 mEq tablet,exte nded release(par t/cryst) TAKE 1 TAB BY MOUTH DAILY. 12/10 completed Not Available Not Available Not Available famotidine 20 mg tablet 12/10 completed Not Available Not Available Not Available methocarbam ol 750 mg tablet TAKE 1 TABLET BY MOUTH EVERY 6 HOURS NEEDED FOR SPASM active Not Available Not Available No t Available trazodone 100 mg tablet TAKE 1 2 TABLETS EVERY DAY BY ORAL ROUTE AT BEDTIME 12/10 completed Not Available Not Available Not Available meclizine 25 mg tablet TAKE 1 TABLET BY MOUTH 3 TIMES A DAY NEEDED FOR DIZZINESS active Not Available Not Available No t Available benzonatate 100 mg capsule TAKE 1 CAPSULE BY MOUTH THREE TIMES A DAY NEEDED FOR 5 DAYS 12/10 completed Not Available Not Available Not Available paroxetine 20 mg tablet 12/10 completed Not Available Not Available Not Available trazodone 150 mg tablet TAKE 1 TABLET(S) EVERY DAY BY ORAL ROUTE AT BEDTIME FOR 30 DAYS. active Not Available Not Available No t Available ferrous sulfate 325 mg (65 mg iron) tablet TAKE 1 TABLET BY MOUTH TWICE A DAY 12/10 completed Not Available Not Available Not Available tobramycin 0.3 % eye drops PLACE 1-2 DROPS IN RIGHT EYE EVERY 4 HOURS. active Not Available Not Available No t Available glimepiride 4 mg tablet TAKE 1 TABLET(S) TWICE A DAY BY ORAL ROUTE. 12/10 completed Not Available Not Available Not Available docusate sodium 100 mg capsule TAKE ONE (1) CAPSULE BY MOUTH TWICE DAILY DIRECTED active Not Available Not Available No t Available hydrochloro thiazide 25 mg tablet TAKE 1 TABLET BY MOUTH EVERY DAY 12/05 completed Not Available Not Available Not Available diazepam 10 mg tablet 12/10 completed Not Available Not Available Not Available ibuprofen 600 mg tablet TAKE 1 TAB BY MOUTH EVERY 6 HOURS NEEDED FOR PAIN. 07/30 completed Not Available Not Available Not Available oxycodone-a cetaminophe n 7.5 mg-325 mg tablet 12/10 completed Not Available Not Available Not Available lisinopril 40 mg tablet TAKE 1 TABLET BY MOUTH EVERY DAY 12/05 completed Not Available Not Available Not Available ondansetron 4 mg disintegrat ing tablet TAKE 1 TABLET BY MOUTH EVERY 8 HOURS NEEDED FOR NAUSEA FIRST LINE active Not Available Not Available No t Available cefdinir 300 mg capsule TAKE 2 CAPSULES EVERY DAY BY ORAL ROUTE DIRECTED FOR 10 DAYS. 04/15 completed Not Available Not Available Not Available Grisel Aspirin 325 mg tablet Take 1 tablet every day by oral route. 2018 active Not Available Not Available Not Avai lable glipizide 5 mg tablet TAKE 1 TABLET WITH BREAKFAST , LUNCH, AND SUPPER DAILY 12/05 completed Not Available Not Available Not Available prazosin 2 mg capsule TAKE 1 CAPSULE BY MOUTH EVERY NIGHT AT BEDTIME active Not Available Not Available No t Available naproxen 500 mg tablet TAKE 1 TABLET BY MOUTH TWICE A DAY NEEDED FOR PAIN 12/10 completed Not Available Not Available Not Available metoclopram danis 10 mg tablet 12/10 completed Not Available Not Available Not Available amoxicillin 875 mg-potassiu m clavulanate 125 mg tablet TAKE 1 TABLET BY MOUTH EVERY 12 HOURS DIRECTED FOR 10 DAYS 04/15 completed Not Available Not Available Not Available oxycodone 5 mg tablet TAKE 1 TABLET BY MOUTH EVERY 8 HOURS NEEDED FOR PAIN FOR UPTO 10 DAYS 12/10 completed Not Available Not Available Not Available cyclobenzap rine 5 mg tablet TAKE 1 TABLET (5 MG TOTAL) BY MOUTH 2 (TWO) TIMES A DAY NEEDED FOR MUSCLE SPASMS. 12/10 completed Not Available Not Available Not Available Byetta 5 mcg/dose (250 mcg/mL)1.2 mL subcutaneou s pen injector INJECT 5MCG SUBCUTANE OUSLY TWICE DAILY BEFORE MEALS 04/15 completed Not Available Not Available Not Available Levemir U-100 Insulin 100 unit/mL subcutaneou s solution 12/05 completed Not Available Not Available Not Available BD Ultra-Fine Short Pen Needle 31 gauge x 12/31 USE DAILY WITH TOUJEO AND WEEKLY WITH OZEMPIC active Not Available Not Available No t Available Januvia 50 mg tablet TAKE 1 TABLET BY ORAL ROUTE EVERY DAY active Not Available Not Available No t Available Januvia 100 mg tablet TAKE 1 TABLET BY MOUTH EVERY DAY IN THE MORNING 12/05 completed Not Available Not Available Not Available desvenlafax ine succinate ER 50 mg tablet,exte nded release 24 hr TAKE 1 TABLET BY MOUTH EVERY DAY IN THE MORNING active Not Available Not Available No t Available Xarelto 20 mg tablet TAKE 1 TABLET BY MOUTH EVERY DAY 12/10 completed Not Available Not Available Not Available OneTouch Verio test strips USE DIRECTED THREE TIMES A DAY active Not Available Not Available No t Available BD Insulin Syringe Ultra-Fine 1 mL 31 gauge x 5/16 12/10 completed Not Available Not Available Not Available Farxiga 10 mg tablet TAKE 1 TABLET BY MOUTH EVERY DAY FOR 30 DAYS 04/15 completed Not Available Not Available Not Available Jardiance 25 mg tablet TAKE 1 TABLET BY MOUTH EVERY DAY IN THE MORNING active Not Available Not Available No t Available Trulicity 1.5 mg/0.5 mL subcutaneou s pen injector INJECT 0.5 ML EVERY WEEK BY SUBCUTANE OUS ROUTE WITH MEALS FOR 30 DAYS. 03/03 completed Not Available Not Available Not Available Trulicity 0.75 mg/0.5 mL subcutaneou s pen injector Inject 0.75 mg every week by subcutane ous route for 28 days. 04/15 completed Not Available Not Available Not Available Toujeo SoloStar U-300 Insulin 300 unit/mL (1.5 mL) subcutaneou s pen INJECT 40 UNIT(S) EVERY DAY BY SUBCUTANE OUS ROUTE AT BEDTIME 04/15 completed Not Available Not Available Not Available desvenlafax ine succinate ER 25 mg tablet,exte nded release 24 hr TAKE 1 TABLET BY MOUTH EVERY DAY DIRECTED 12/10 completed Not Available Not Available Not Available Tresiba FlexTouch U-100 insulin 100 unit/mL (3 mL) subcutaneou s pen INJECT 20 UNITS EVERY DAY BY SUBCUTANE OUS ROUTE AT BEDTIME FOR 90 DAYS. active Not Available Not Available No t Available Bychelly BCise 2 mg/0.85 mL subcutaneou s auto-inject or INJECT 2MG BY SUBCUTANE OUS ROUTE EVERY 7 DAYS 12/10 completed Not Available Not Available Not Available Ozempic 0.25 mg or 0.5 mg (2 mg/1.5 mL) subcutaneou s pen injector INJECT 0.5 MG EVERY WEEK BY SUBCUTANE OUS ROUTE WITH MEALS FOR 90 DAYS. 12/10 completed Not Available Not Available Not Available OneTouch Delica Plus Lancet 33 gauge TEST SUGARS THREE TIMES DAILY BEFORE MEALS X 90 DAYS active Not Available Not Available No t Available Ozempic 1 mg/dose (4 mg/3 mL) subcutaneou s pen injector INJECT 1MG SUBCUTANE OUSLY EVERY WEEK active Not Available Not Available No t Available Ozempic 2 mg/dose (8 mg/3 mL) subcutaneou s pen injector Inject 2 mg by subcutane ous route for 84 days. 04/15 completed Not Available Not Available Not Available Vitals Date Recorded Body mass index (BMI) Body height Oxygen saturation Oxygen saturation in Arterial blood by Pulse oximetry Heart rate Body temperature Body weight Systolic blood pressure Diastolic blood pressure Provider Name and Address Organization Details Last Updated DateTime 2 32.1 kg/m2 160.02 cm 98 % 98 % 94 /min 98.3 [degF] 02187.2 2 g 120 mm[Hg] 74 mm[Hg] Not Available [facility] 3 18:35:13 Date Recorded Body mass index (BMI) Body height Oxygen saturation Oxygen saturation in Arterial blood by Pulse oximetry Heart rate Body temperature Body weight Systolic blood pressure Diastolic blood pressure Provider Name and Address Organization Details Last Updated DateTime 2 31.7 kg/m2 160.02 cm 98 % 98 % 80 /min 98 [degF] 96457.0 3 g 110 mm[Hg] 80 mm[Hg] Not Available [facility] 3 18:35:13 Date Recorded Body height Body mass index (BMI) Body weight Body temperature Respiratory rate Heart rate Systolic blood pressure Diastolic blood pressure Provider Name and Address Organization Details Last Updated DateTime 3 160.02 cm 28.9 kg/m2 43548.5 6 g 97.7 [degF] 16 /min 73 /min 143 mm[Hg] 81 mm[Hg] Jammie Anguiano RN [place] [facility] [employer] [facility] 3 12:06:04 Date Recorded Body mass index (BMI) Body height Oxygen saturation Oxygen saturation in Arterial blood by Pulse oximetry Heart rate Body temperature Body weight Systolic blood pressure Diastolic blood pressure Provider Name and Address Organization Details Last Updated DateTime 2 34.2 kg/m2 160.02 cm 99 % 99 % 70 /min 97.7 [degF] 04855.3 3 g 105 mm[Hg] 65 mm[Hg] Not Available [facility] 3 18:35:13 Social History Question Answer Notes LastModified by Row Sham [place] Details LastModified Time Tobacco Smoking Status Never Smoker Not Available [facility] 10/16/2022 18:34:44 Are You Blind Or Do You Have Difficulty Seeing? No [id number] Information not available 10/16/2022 What Is Your Level Of Caffeine Consumption? None [id number] Information not available 10/16/2022 In The 14 Days Before Symptom Onset, Have You Had Close Contact With A Laboratory-confirm ed COVID-19 While That Case Was Ill? No [id number] Information not available 10/16/2022 In The 14 Days Before Symptom Onset, Have You Had Close Contact With A Person Who Is Under Investigation For COVID-19 While That Person Was Ill? No [id number] Information not available 10/16/2022 Are You Deaf Or Do You Have Serious Difficulty Hearing? No [id number] Information not available 10/16/2022 What Type Of Diet Are You Following? REGULAR [id number] Information not available 10/16/2022 What Is Your Relationship Status? Single [id number] Information not available 10/16/2022 Have You Recently Traveled Abroad? No [id number] Information not available 10/16/2022 Do You Have Difficulty Walking Or Climbing Stairs? No [id number] Information not available 10/16/2022 Do You Have Any Dietary Restrictions? No [id number] [id number] Information not available 10/16/2022 Sex: Female Functional Status Question Answer Note LastModified by Organizat ion Details LastModified Time What is your level of alcohol consumption? None [id number] Information not available 10/16/2022 Do you have transportation difficulties? No [id number] Information not available 10/16/2022 Are you able to walk? YESWOREST [id number] [id number] Information not available 10/16/2022 Do you have difficulty doing errands alone? No [id number] [id number] Information not available 10/16/2022 Are you able to care for yourself? Yes [id number] Information not available 10/16/2022 Do you have difficulty dressing or bathing? No [id number] [id number] Information not available 10/16/2022 Mental Status Question Answer Note LastModified by Organizat ion Details LastModified Time Do you have difficulty concentrating, remembering or making decisions? No [id number] Information not available 10/16/2022 Family History Nothing Reported. Medical History Condition Response DIABETES, TYPE Y PARATHYROID DISEASE Y HYPERTENSION Y Gynecological HistoryNo gynecological history recorded. Obstetrics History GPAL:G 0 P 0 0 0 0 Past Encounters Encounter ID Performer Location Encounter Start Date Encounter Closed Date Diagnosis/Indication Diagnosis SNOMED-CT Code Diagnosis ICD10 Code Diagnosis Note [id number] [facility] [address] [place] [address] 12/10/2021 00:00:00 12/10/2021 12:18:37 [id number] [facility] [address] [place] [address] 03/18/2022 00:00:00 03/18/2022 15:48:28 [id number] [facility] [address] [place] [address] 07/30/2022 00:00:00 07/30/2022 15:33:07 [id number] Ria Louise MD [facility] [address] [place] [address] 04/15/2023 11:48:50 04/15/2023 12:51:32 Well controlled type 2 diabetes mellitus 006848722 E11.9 a1c of 6.3% - she is having lows in afternoon- advised to take glimepirid e only if premeals over 150 mg/dL- will drop her dose from 2 mg down to 1 mg before breakfast- she is aware to take half if over 120 mg/dL and to not take if under 120 mg /dl to avoid hypoglycem ia- make sure she is eating and hold if not eating- do not take with dinner. Continue ozempic 1 mg once weekly as patient tolerating well along with jardiance 25 mg daily. Continue tresiba only if fasting glucose over 120 mg/dL consistent ly at lower dose 20 units and less with self titration instructio ns to maintain fasting glucose 90-120 mg/dL. Continue to test 2-3 times daily before meals and maintain log. Chronic ki dney disease [id number] N18.9 She has evidence of secondary hyperparat hyroidism with normal calcium - Cr of 1.3 with GFR of 48 ml/min with no proteinuri a- due to hx of diabetes and CKD would recommend evaluation by nephrology . Dyslipidemia [id number] E 78.5 Continue on statin therapy. Spent up to 25 minutes preparing to see the patient (eg, review of tests), obtaining and/or reviewing separately obtained history, performing a medically appropriat e examinatio n and evaluation , counseling and educating the patient, ordering medication s, tests, along with documentin g clinical informatio n in the electronic health record, independen tly interpreti ng results and communicat ing results to the patient. Patient can be followed by PCP - she/he is aware of my resignatio n and last day of May 30. If needed his/her PCP can refer patient to another endocrinol ogist in the area. All questions /concerns answered and refills necessary at visit today. Health Concerns Section Related Observation LastModified by Organization Detai ls LastModified Time None Recorded Concern Status LastModified by Organization Details LastModified Time None Recorded Advance Directives Directive None Recorded Payers Encounter Date Sequence Insurance Name Policy Number Policy Nash Covered Member ID Nash Member ID Guarantor Name 04/15/2023 1 [facility] (MEDICARE REPLACEMENT/A DVANTAGE - PPO) [id number] Anneliese Zhang [id number] Anneliese Zhang Notes Date Note Type Note Provider Name and Address Organization Details Recorded Time 04/15/2023 text/html 67 yo female com es in for follow up in management of well controlled type 2 DM (A1C of 6.3%), dyslipidemia and secondary hyperparathyroidism . last seen in Jul at that time we continued farxiga (but recommended wipes to reduce risk for infections). We had patient continue tresiba 25-30 units daily and titrate by 2 units every 3 days to maintain FBG 90-130. We switched back to ozempic and now taking 1 mg once weekly. 0.25 mg weekly and increase after 4 weeks to 0.5 mg (samples provided). We continued glimepiride scale. She is now taking jardiance in lieu of farxiga and had no issues with infections on this. She is still on glimepiride scale. She does have a few low sugars in middle of the day. She only takes tresiba when her glucose is elevated- usually takes under 20 units if needed. She is still on ozempic 1 mg once weekly- no nausea or no vomiting.labs from 04/10:24 hour urine calcium very low(bone density from 2021 revealed early osteopenia) vit D 31.1 ng/MLTSH of 0.417 uIU/mlFT4 of 1.2 ng/dLa1c 6.3%146/79/47/83PO4 normalglucose 117 mg/dLCr 1.33 mg/dL with GFR 48 ml/minLFT normalPTH 174 pg/ML with calcium of 9.2 mg/dLmicroalbumin <6 ug/mg Ria Louise MD [address] [facility], [facility] [address], [place], [address], [place] - [place] Seen 04/15/2023 13:03:53 OBGyn Episode No OBEpisode recorded.
--- OUTSIDE RECORDS SUMMARY | 2025-01-24 02:41 | XMS_ITS | Clinical Summary ---
Author Organization [facility] Address [address] [place] [address] Phone Care Team Providers Care Mattress Finisher Name Role Phone Israel Cowan MD Primary Care Provider Allergies Active Allergy Reactions Criticality Noted Date Comments Insulin Glargine Itching 04/07/2018 Pt has severe itching when using insulin Lidocaine Anaphylaxis 10/18/2015 Prednisone Swelling 10/18/2015 Swelling to leg Medications sitaGLIPtin (JANUVIA) 50 MG Tablet Take 50 mg by mouth daily. Active glimepiride (AMARYL) 2 MG Tablet Take 2 mg by mouth 2 times daily. Active carvedilol (COREG) 12.5 MG Tablet Take 12.5 mg by mouth 2 times daily. Active lisinopril (PRINIVIL, ZESTRIL) 40 MG Tablet Take 40 mg by mouth daily. Active sertraline (ZOLOFT) 100 MG Tablet Take 100 mg by mouth daily. Active atorvastatin (LIPITOR) 20 MG Tablet Take 20 mg by mouth daily. Active aspirin 325 MG Tablet Take 325 mg by mouth daily. Active tobramycin (TOBREX) 0.3 % Solution Place 1-2 Drops in right eye every 4 hours. 1 Bottle 0 10/18/19 16 Active Additional Information Patient not taking.Reported on 04/07/2018 ferrous sulfate 325 (65 FE) MG Tablet Take 325 mg by mouth 2 times daily. Active prazosin (MINIPRESS) 2 MG Capsule Take 2 mg by mouth nightly. Active buPROPion (WELLBUTRIN) 150 MG XL tabletIndicatio ns:PTSD Take 150 mg by mouth daily. Indications: PTSD Active docusate sodium (COLACE) 100 MG Capsule Take 1 Cap by mouth daily. 180 Cap 3 11/03/19 16 Active Additional Information Patient not taking.Reported on 04/07/2018 polyethylene glycol (GLYCOLAX, MIRALAX) Pack Take 1 Packet by mouth daily. Dissolve in 4-8 oz of liquid. 90 Packet 3 11/03/19 16 Active potassium chloride SA (K-DUR) 20 MEQ Tablet Controlled Release Take 1 Tab by mouth daily. 90 Tab 3 11/03/19 16 Active Additional Information Patient not taking.Reported on 04/10/2018 QUEtiapine (SEROQUEL) 200 MG Tablet Take 200 mg by mouth nightly. Active triamcinolone (KENALOG) 0.1 % Cream Apply 1 Tube 3 times daily. Dispense 45 gram tube. Apply thin film to affected area(s) twice daily until healed. 1 Tube 0 02/08/20 16 Active Additional Information Patient not taking.Reported on 04/07/2018 hydroCHLOROthia zide 25 MG Tablet Take 25 mg by mouth daily. 03/30/20 16 Active HYDROcodone-jose taminophen (NORCO) 5-325 MG Tablet Take 1-2 Tabs by mouth every 4 hours as needed for Pain. 15 Tab 0 04/30/20 16 Active Additional Information Patient not taking.Reported on 04/07/2018 traZODone (DESYREL) 100 MG Tablet Take 100 mg by mouth nightly. Active Insulin Glargine (TOUJEO SOLOSTAR SC) 30 Units by Subcutaneous route nightly. Active glipiZIDE (GLUCOTROL) 5 MG Tablet Take 5 mg by mouth daily. Active Exenatide ER 2 MG Pen-injector 2 mg by Subcutaneous route once a week. Active BYDUREON BCISE 2 MG/0.85ML Auto-injector INJECT 2 MG SUBCUTANEOUSLY EVERY 7 DAYS ROTATING INJECTION SITES 1 02/24/20 18 Active ferrous sulfate 325 (65 Fe) MG Tablet Take 1 Tab by mouth 2 times daily. 120 Tab 09/04/19 19 Active traMADol (ULTRAM) 50 MG Tablet Take 1-2 Tabs by mouth every 6 hours as needed for Moderate or more severe pain. 10 Tab 01/22/20 19 Active famotidine (PEPCID) 20 MG Tablet TAKE 1 TABLET BY MOUTH TWICE A DAY 180 Tab 3 07/07/20 19 Active HYDROcodone-jose taminophen (NORCO) 5-325 MG Tablet Take 1-2 Tabs by mouth every 8 hours as needed for Moderate or more severe pain. 15 Tab 07/10/20 19 Active metoclopramide (REGLAN) 10 MG Tablet Take 1 Tab by mouth 3 times daily as needed for Nausea - 1st line. 12 Tab 07/10/20 19 Active ibuprofen (MOTRIN) 600 MG Tablet Take 1 Tab by mouth every 8 hours as needed for Moderate or more severe pain. 60 Tab 07/22/20 19 Active traMADol (ULTRAM) 50 MG Tablet Take 1 Tab by mouth every 6 hours as needed for Moderate or more severe pain. 20 Tab 07/22/20 19 Active meclizine (ANTIVERT) 25 MG Tablet Take 1 Tablet by mouth 3 times daily as needed for Dizziness. 30 Tablet 04/27/20 23 Active ondansetron (ZOFRAN-ODT) 4 MG TABLET DISPERSIBLE Take 1 Tablet by mouth every 8 hours as needed for Nausea - 1st line. 10 Tablet 04/27/20 23 Active ondansetron (ZOFRAN-ODT) 4 MG TABLET DISPERSIBLE Take 1 Tablet by mouth every 8 hours as needed for Nausea - 1st line. 10 Tablet 06/14/20 24 Active Active Problems Problem Noted Date Diagnosed Date Left breast mass 05/01/2018 Diverticulitis of intestine without perforation or abscess without bleeding 10/29/2015 Type 2 diabetes mellitus without complication Essential hypertension 10/29/2015 Immunizations Immunization Administration Dates Next Due Influenza Vaccine, Quadrivalent, PF 10/30/2015 Pneumococcal Vaccine Adult - 23 Valent 6 TDAP Vaccine 04/30/2016 Family History Medical History Relation Name Comments Diabetes Father Heart Attack Father Hypertension Mother Relation Name Status Comments Father Mother Alive Social History Tobacco Use Types Packs/Day Years Used Date Smoking Tobacco: Passive Smo ke Exposure - Never Smoker Smokeless Tobacco: Never Alcohol Use Standard Drinks/Week Comments No 0 (1 standard drink = 0.6 oz pur e alcohol) Comments No Sex and Gender Information Value Date Recorded Sex Assigned at Not on file Legal Sex Female 12:34 AM CDT Gender Identity Not on file Sexual Orientation Not on file 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 Not on file Not on file Last Filed Vital Signs Vital Sign Reading Time Taken Comments Blood Pressure 136/81 06/14/2024 6:15 PM CDT Pulse 75 06/14/2024 6:15 PM CDT Temperature 36.8 C (98.2 F) 06/14/2024 1:58 PM CDT Respiratory Rate 16 06/14/2024 6:15 PM CDT Oxygen Saturation 100% 06/14/2024 6:15 PM CDT Inhaled Oxygen Concentration - - Weight 68.9 kg (152 lb) 06/14/2024 1:58 PM CDT Height 158.8 cm (5' 2.5) 06/14/2024 1:58 PM CDT Body Mass Index 27.36 06/14/2024 1:58 PM CDT Plan of Treatment Health Maintenance Due Date Last Done Comments DEXA Bone Density 1955 Diabetes: Eye Exam 1955 Diabetes: Foot Exam 1955 Hepatitis C Virus (HCV) Screening 1955 Cologuard 2005 Immunochemical Fecal Occult Blood 2005 Zoster Immunization (1 of 2) 2005 Respiratory Syncytial Virus (RSV) Immunization (Adult) (1 - Risk 60-74 years 1-dose series) 2015 Mammogram 04/15/2019 04/15/2018, 02/25/2015 SARS-COV-2 Immunization ( season) 2024 07/13/2021, 11/05/2020, 11/03/2020 Diabetes: Hemoglobin A1c 10/20/2024 024, 12/18/2018, 10/29/2015 Influenza Immunization (Season Ended) 2025 06/20/2022, 06/01/2020, 05/29/2018, Additional history exists Diabetes: Nephropathy Screening 06/14/2025 06/14/2024, 04/27/2023, 07/22/2019, Additional history exists Td Immunization Every 10 Years (Adults With 1 Tdap) 04/30/2026 04/30/2016 Colonoscopy 04/28/2028 04/28/2018 Colorectal Cancer Screening 04/28/2028 DTaP/Tdap/Td Immunization Discontinued 04/30/2016 Pneumococcal Immunization (50+ years) Completed 06/20/2022, 10/20/2020, 08/30/2015 Pneumococcal Immunization Combined Discontinued 06/20/2022, 10/20/2020, 08/30/2015 Hepatitis B Immunization Aged Out No longer eligible based on patient's age to complete this topic Human Papillomavirus (HPV) Immunization Aged Out No longer eligible based on patient's age to complete this topic Meningococcal Immunization (ACWY) Aged Out No longer eligible based on patient's age to complete this topic Rotavirus Immunization Aged Out No lo nger eligible based on patient's age to complete this topic Procedures Procedure Name Priority Date/Time Associated Diagnosis Comments CMP (COMPREHENSIVE METABOLIC PANEL) STAT 06/14/2024 2:28 PM CDT DIONNA SCREENING BILATERAL WITH CAD Routine 04/15/2018 HEMOGLOBIN A1C W/ ESTIMATED GLUCOSE STAT 10/29/2015 8:38 PM CDT from Last 3 Months or Most Recently Relevant to Health Maintenance Results * (ABNORMAL) CMP (06/14/2024 2:28 PM CDT) SODIUM 137 136 - 145 mmol/L 06/14/2024 3:00 PM CDT [facility] POTASSIUM 3.5 3.5 - 5.1 mmol/L 06/14/2024 3:00 PM CDT [facility] CHLORIDE 97(L) 98 - 107 mmol/L 06/14/2024 3:00 PM CDT [facility] CO2, VENOUS 26 22 - 30 mmol/L 06/14/2024 3:00 PM CDT [facility] ANION GAP 17.5 <18.0 mmol/L 06/14/2024 3:00 PM CDT [facility] GLUCOSE 133(H) 70 - 99 mg/dL 06/14/2024 3:00 PM CDT [facility] BUN 19 10 - 20 mg/dL 06/14/2024 3:00 PM CDT [facility] CREATININE, BLOOD 1.75(H) 0.60 - 1.00 mg/dL 06/14/2024 3:00 PM CDT [facility] BUN/CREATININE RATIO 11(L) 12 - 20 ratio 06/14/2024 3:00 PM CDT [facility] TOTAL PROTEIN 9.1(H) 6.3 - 8.2 g/dL 06/14/2024 3:00 PM CDT [facility] ALBUMIN 4.4 3.5 - 5.0 g/dL 06/14/2024 3:00 PM CDT [facility] A/G RATIO 0.9(L) 1.0 - 2.2 06/14/2024 3:00 PM T [facility] CALCIUM 10.0 8.7 - 10.5 mg/dL 06/14/2024 3:00 PM T [facility] T BILI 1.5(H) 0.2 - 1.2 mg/dL 06/14/2024 3:00 PM CDT [facility] SGOT (AST) 21 5 - 34 U/L 06/14/2024 3:00 PM T [facility] Comment: Specimen is hemolyzed. In vitro hemolysis could affect results. Clinical correlation advised. SGPT (ALT) 16 0 - 55 U/L 06/14/2024 3:00 PM T [facility] ALKALINE PHOSPHATASE 82 40 - 150 U/L 06/14/2024 3:00 PM T [facility] GFR, ESTIMATED 31(L) >=60 06/14/2024 3:00 PM T [facility] Comment: Creatinine Clearance is the preferred criteria for selecting drug dose adjustments in renally impaired patients. The GFR is provided as additional pertinent clinical information. GFR is reported in mL/min/1.73 sq m. Calculation based on the Chronic Kidney Disease Epidemiology Collaboration (CKD- EPI) equation refit without adjustment for race. GFR, EST. 35(L) >=60 024 3:00 PM CDT [facility] GFR, EST. NONAFRICAN 29(L) >=60 06/14/2024 3:00 PM CDT [facility] Blood Venipuncture / Unknown 06/14/2024 2:28 PM CDT 06/14/2024 2:39 PM CDT Alonzo Theodore MD CHEMISTRY ORDERABLES Final Result Performing Organization Address City/[facility]/ZIP Co de Phone Number [facility] [address] [place] [address] * DIONNA SCREENING BILATERAL WITH CAD (04/15/2018) Anatomical Region Laterality Modality breast Bilateral Mammography Israel Cowan MD IMG MAMMO ORDERABLES Fi nal Result * (ABNORMAL) Hemoglobin A1C (if indicated) (10/29/2015 8:38 PM CDT) HGB-A1C 6.6(H) 4.4 - 6.4 % 10/29/2015 9:00 PM CDT [facility] Est Average Glucose 142.7 mg/dL 10/29/2015 9:00 PM CDT [facility] Blood specimen (specimen) Butterfly Puncture / Unknown 10/29/2015 8:38 PM CDT 10/29/2015 8:42 PM CDT Narrative [facility] - 10/29/2015 9:00 PM CDT HEMOGLOBIN A1C: DIABETIC PATIENTS: WELL-CONTROLLED: 6.2 - 7.0 INTERMEDIATE WELL-CONTROLLED: 7.0 - 9.0 POORLY-CONTROLLED: >9.0 us Maggy Prescott CAR TESTER, VALVE MECHANIC CHEMISTRY ORDERAB LES Final Result Performing Organization Address City/[facility]/ZIP Co de Phone Number [facility] [address] [place] [address] from Last 3 Months or Most Recently Relevant to Health Maintenance [place] [address] MEDICARE C [facility] Care Teams Mattress Finisher Relationship Specialty Start Date End Date Israel Cowan MD [address] [place] [id number] PCP - General Internal Medicine 10/18/15
--- OUTSIDE RECORDS SUMMARY | 2025-01-24 02:41 | XMS_ITS | Patient Health Record ---
Author Organization [facility] Address [address] [facility] [address] [place] [address] Care Team Providers Care Commercial Finance Manager Name Role Phone JOSH PUCKETT Unavailable [phone] Reason For Referral No Information Plan Of Treatment No Information Insurance Providers Payer Name Payer Address Payer Phone Subscriber Number Group Number Insured Name Patient Relationship to Insured Coverage Start Date Coverage End Date [employer] [address] [address] [place] [address] [id number] Anneliese Zhang Self - patient is the insured 2
--- OUTSIDE RECORDS SUMMARY | 2025-01-24 02:41 | XMS_ITS | Clinical Summary ---
Author Organization [facility] Address [address] [address] Care Team Providers Care Cane Furniture Maker Name Role Phone Israel Cowan MD Primary Care Provider [phone] Social History Tobacco Use Types Packs/Day Years Used Date Smoking Tobacco: Never Assessed Comments Unknown Sex and Gender Information Value Date Recorded Sex Assigned at Not on file Legal Sex Female 4:56 PM EDT Gender Identity Not on file Sexual Orientation Not on file Plan of Treatment Health Maintenance Due Date Last Done Comments Breast Cancer Screening 1955 Colorectal Cancer Screening: Annual FOBT 2004 Colorectal Cancer Screening: Colonoscopy 2004 Colorectal Cancer Screening: Sigmoidoscopy 2004 Pneumococcal Vaccine: 50+ Years (2 of 2 - PCV) 08/30/2016 08/30/2015 Diabetes: Hemoglobin A1C 04/18/2023 Diabetes: Ophthalmology Exam 04/18/2023 Diabetes: Pedal Pulse Checked 04/18/2023 Diabetes: Sensory Foot Exam 04/18/2023 Diabetes: Visual Foot Exam 04/18/2023 Influenza Vaccine (Season Ended) 2025 08/28/2016, 10/30/2015 Hepatitis B Vaccine Aged Out No longe r eligible based on patient's age to complete this topic Insurance [facility] Medicare Care Teams Cane Furniture Maker Relationship Specialty Start Date End Date Israel Cowan MD [address] [place] [address] PCP - General Internal Medicine 07/08/23
--- OUTSIDE RECORDS SUMMARY | 2025-01-24 02:41 | XMS_ITS ---
Author Name Auto Generated, Auto Generated Organization [facility] Address [address] [place] [address] Phone [phone] Care Team Providers Care Real Estate Sales Manager Name Role Phone Emma Woods Unavailable Baldemar Gordon Unavailable [phone] Functional Status No Results Mental Status No Results Allergies and Intolerances Name Onset Date Reaction Severity NSAIDS (Non-Steroidal Anti-I nflammatory Drug) (Allergy) FriMay 05 19:46:00 EDT 2018 prednisolone (Allergy) FriMay 05 19:46:00 EDT 2 019 Medications Medication Directions Start Date End Date bisacodyl 10 mg rectal suppository 1 suppository SUPPOSITORY, RECTAL Rectal 4 Times Daily Fri Sep 19:00:00 EDT 2018 Sat Sep 21 01:00:00 EDT 2018 morphine 10 mg/mL injection solution 10 mg VIAL (ML) Intramuscular PRN Every 4 Hours pain Fri Sep 19:00:00 EDT 2018 Sat Sep 21 01:00:00 EDT 2018 bisacodyl 10 mg rectal suppository 1 suppository SUPPOSITORY, RECTAL Rectal PRN Repeat x 1 if no results Fri Sep 19:00:00 EDT 2018 Sat Sep 21 01:00:00 EDT 2018 morphine 10 mg/mL injection solution 10 mg VIAL (ML) Intramuscular PRN Every 4 Hours pain Fri Sep 19:00:00 EDT 2018 Sat Sep 21 00:33:00 EDT 2019 HYDROcodone 5 mg-acetaminophen 325 mg tablet 1-2 tab TABLET Oral PRN Every 4 Hours pain Fri Sep 19:00:00 EDT 2018 Sat Sep 21 01:00:00 EDT 2018 vancomycin 1,000 mg intravenous injection 1000 mg VIAL (EA) Intravenous Every 12 Hours Fri Sep 18 19:00:00 EDT 2018 Sat Sep 21 01:00:00 EDT 2019 famotidine 20 mg tablet 20 mg TABLET Ora l 2 Times Daily Wed Sep 18 18:00:00 EDT 2018 Sat Sep 21 01:00:00 EDT 2019 acetaminophen 500 mg tablet 1000 mg TABL ET Oral PRN Every 6 Hours for temp >101 Wed Sep 18 19:00:00 EDT 2019 Sat Sep 21 01:00:00 EDT 2019 Banophen 25 mg capsule 50 mg CAPSULE Ora l PRN Hour Of Sleep sleep Wed Sep 18 19:00:00 EDT 2019 Sat Sep 21 01:00:00 EDT 2019 Zofran 2 mg/mL intravenous solution 4 mg VIAL (ML) Intravenous PRN Every 4 Hours nausea Wed Sep 18 19:00:00 EDT 2019 Sat Sep 21 01:00:00 EDT 2019 cyclobenzaprine 10 mg tablet 10 mg TABLET Oral PRN Hour Of Sleep spasms Wed Sep 18 19:00:00 EDT 2019 Sat Sep 21 01:00:00 EDT 2019 Milk of Magnesia 400 mg/5 mL oral suspension 30 mL SUSPENSION, ORAL (FINAL DOSE FORM) Oral PRN Hour Of Sleep constipation Wed Sep 18 19:00:00 EDT 2019 Sat Sep 21 01:00:00 EDT 2019 Banophen 25 mg capsule 50 mg CAPSULE Ora l PRN Every 6 Hours itching Wed Sep 18 19:00:00 EDT 2019 Sat Sep 21 01:00:00 EDT 2019 lactated Ringers intravenous solution 100cc/hr INTRAVENOUS SOLUTION Intravenous Continuous Wed Sep 18 19:00:00 EDT 2019 Sat Sep 21 01:00:00 EDT 2019 Problems Active Concerns * Encounter for other orthopedic aftercare* Code: * Start Date: FriMay 05 00:00:00 EDT 2018 * End Date: * Text: * Low back pain* Code: * Start Date: FriMay 05 00:00:00 EDT 2019 * End Date: * Text: Reason for Referral Past Medical History
--- OUTSIDE RECORDS SUMMARY | 2025-01-24 02:41 | XMS_ITS | Clinical Summary ---
Author Organization [facility] Address [address] [place] [address] Care Team Providers Care Court Manager Name Role Phone Israel Cowan MD Primary Care Provider Ria Louise MD Unavailable Allergies Active Allergy Reactions Criticality Noted Date Comments Insulin Glargine Itching Low 04/07/2018 Pt has severe itching when using insulin Lidocaine Anaphylaxis High 10/18/2015 Nsaids (Non-Steroidal Anti-Inflammatory Drug) Unknown 12/20/2019 'was told to avoid taking nsaids Prednisone Swelling Medium 10/18/2015 Swelling to leg Medications atorvastatin (LIPITOR) 40 mg tabletIndicatio ns:hyperlipidem ia Take 1 tablet (40 mg total) by mouth nightly 1 10/01/2017 Active OneTouch Verio strip TAKE 1 STRIP(S) 3 TIMES A DAY BY MISCELL. ROUTE BEFORE MEALS FOR 30 DAYS. 11/25/2019 Active carvediloL (COREG) 12.5 mg tablet Take 1 tablet (12.5 mg total) by mouth 2 (two) times a day 11/26/2019 Active insulin syringe-needle U-100 (BD Insulin Syringe Ultra-Fine) 1 mL 31 gauge x 5/16 syringe BD Insulin Syringe Ultra-Fine 1 mL 31 gauge x 5/16 Active pen needle, diabetic (BD Ultra-Fine Short Pen Needle) 31 gauge x 5/16 needle BD Ultra-Fine Short Pen Needle 31 gauge x 5/16 USE DIRECTED. INJECT INSULIN AT BEDTIME Active pen needle, diabetic (TechLITE Pen Needle) 31 gauge x 5/16 needle TechLITE Pen Needle 31 gauge x 5/16 INJECT INSULIN AT BEDTIME AND OZEMPIC ONCE WEEKLY Active hydrOXYzine (ATARAX) 50 mg tablet Take 1 tablet (50 mg total) by mouth nightly at bedtime 11/27/2023 Active lisinopril-hydr oCHLOROthiazide (ZESTORETIC) 20-12.5 mg per tablet Take 1 tablet by mouth daily 01/09/2024 Active rosuvastatin (Crestor) 10 mg tablet CRESTOR 10 MG ORAL TABLET 12/09/2008 Active aspirin 325 mg tablet Take 1 tablet (325 mg total) by mouth daily Active desvenlafaxine ER (PRISTIQ) 100 mg 24 hr tablet Take 1 tablet (100 mg total) by mouth every morning 03/03/2024 Active prazosin (MINIPRESS) 2 mg capsule TAKE 1 CAPSULES EVERY DAY BY ORAL ROUTE AT BEDTIME. 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 On statin therapy, no changes. Assessment & Plan (02/02/2024 9:25 PM CDT): Continue statin therapy Overweight with body mass in dex (BMI) of 27 to 27.9 in adult 02/02/2024 Assessment & Plan (08/19/2024 4:26 PM SLD INCLUSION TEACHER): Chronic, progressively improving Advised to include resistance training/strength training exercises Assessment & Plan (02/02/2024 9:26 PM CDT): Counseled on diet and exercise Vitamin D deficiency 01/21/2024 Assessment & Plan (04/22/2024 11:12 AM CDT): Chronic problem, not at goal. Likely contributing to secondary hyperparathyroidism. Start vitamin D as discussed last visit. Multinodular goiter (nontoxic) 05/08/2021 Assessment & Plan (08/19/2024 4:25 PM SLD INCLUSION TEACHER): History of multiple thyroid nodules at least since 2007 Status post left thyroid nodule biopsy 11/2019 - Benign cytology Status post right inferior thyroid nodule biopsy 01/2020 - Benign cytology Last thyroid ultrasound 04/2021 Last TSH 01/2024 WNL Ordered a follow-up thyroid ultrasound Assessment & Plan (04/22/2024 11:12 AM CDT): Chronic stable problem, no compressive ssx. Assessment & Plan (02/02/2024 9:25 PM CDT): Check TSH No compressive symptoms Low back pain 05/05/2019 Encounter for other orthopedic aftercare 019 Left breast mass 05/01/2018 Diverticulitis of intestine without perforation or abscess without bleeding 10/29/2015 Hypertension associated with diabetes 10/29/2015 Assessment & Plan (08/19/2024 4:25 PM SLD INCLUSION TEACHER): Chronic, well controlled Continue lisinopril/hydrochlorothiazide Assessment & Plan (04/22/2024 11:11 AM CDT): Chronic problem, Controlled on lisinopril HCT, carvedilol. No changes. Assessment & Plan (02/02/2024 9:26 PM CDT): Chronic, well controlled Continue Lisinopril- HCTZ Type 2 diabetes mellitus with hyperglycemia 10/16 Assessment & Plan (08/19/2024 4:26 PM SLD INCLUSION TEACHER): Chronic, improving control Hemoglobin A1c 6.0%, at goal Advised to stop Tresiba and glimepiride Continue Jardiance and Ozempic Advised to include resistance training exercises to help work on muscle building and strength training Recommend to make an exam appointment Follow-up in 6 months Assessment & Plan (04/22/2024 11:13 AM CDT): Chronic problem, significantly improving. Lower Toujeo to 15 units if >150, if still dropping then decrease to 10 or stop altogether if needed. Continue good dietary changes. Continue glimepiride, Jardiance. Increase Ozempic to 2 mg weekly. Request eye exam. Assessment & Plan (02/02/2024 9:27 PM CDT): Chronic, uncontrolled, slightly worsening A1c 8.4%, not at goal Goal A1c less than 7% Keep taking Jardiance 25 mg oral daily Increase Glimepiride 2 mg oral twice daily with meals Tresiba 20 units SQ daily at bedtime ( if blood sugars morning less than 100 , cut back by 4-6 units ) Ozempic 1 mg SQ weekly Do labs today Keep up good oral hydration Add some weight training exercises Will try to obtian pt recent eye exam copy Will do DME order process for Freestyle liyah 3 Encounters Date Type Department Care Team Description 12/27/2024 Telephone [facility] [address] [address] Angel Zaidi MD FSL 3 Order 12/07/2024 1:56 PM CDT - 12/07/2024 11:59 PM CDT Hospital Encounter [facility] [address] [place] [address] Abnormal weight loss; Localized swelling, mass and lump, right upper limb Discharge Disposition: Discharge to home or self care 11/30/2024 Telephone [facility] [address] [address] ProviderEdinson MD Scheduling Appointments (Schedule referral appt.) from Last 3 Months Immunizations Immunization Administration Dates Next Due Influenza, Quadrivalent, Spl it, Preservative Free, Intramuscular 08/28/2016 Surgical History Surgery Date Site/Laterality Comments CHOLECYSTECTOMY HYSTERECTOMY 08/18/1993 - 08/17/1994 KNEE SURGERY Left ROTATOR CUFF REPAIR 08/18/2008 - 08/17/2009 Right THYROID LOBECTOMY Right SPINAL FUSION 08/18/2018 - 08/17/2019 Medical History Medical History Date Comments Diabetes (HCC) HTN (hypertension) Hyperlipidemia PTSD (post-traumatic stress disorder) CKD (chronic kidney disease) Idiopathic parathyroidism DVT (deep venous thrombosis) (HCC) 2017 Family History Medical History Relation Name Comments Heart attack Father Heart attack Father's Brother Heart attack Paternal Grandfather Anesthesia problems Neg Hx Relation Name Status Comments Father Father's Brother Paternal Grandfather Social History Tobacco Use Types Packs/Day Years Used Date Smoking Tobacco: Never Smokeless Tobacco: Never Alcohol Use Standard Drinks/Week Comments Not Currently 0 (1 standard drink = 0.6 oz pur e alcohol) Personal Safety Answer Date Recorded Have you ever been in or are you currently in a harmful physical or emotional relationship or is someone making you feel afraid or unsafe? Denies 12/24/2023 Comments No Sex and Gender Information Value Date Recorded Sex Assigned at Not on file Legal Sex Female 2:28 PM SLD INCLUSION TEACHER Gender Identity Not on file Sexual Orientation Not on file Obstetrics History Last Filed Vital Signs Vital Sign Reading Time Taken Comments Blood Pressure 130/70 08/19/2024 3:12 PM SLD INCLUSION TEACHER Pulse 105 08/19/2024 3:12 PM SLD INCLUSION TEACHER Temperature 36.8 C (98.2 F) 12/24/2023 4:06 PM CDT Respiratory Rate 16 08/19/2024 3:12 PM SLD INCLUSION TEACHER Oxygen Saturation 98% 12/24/2023 10:30 PM CDT Inhaled Oxygen Concentration - - Weight 69.4 kg (153 lb) 08/19/2024 3:12 PM SLD INCLUSION TEACHER Height 157.5 cm (5' 2) 08/19/2024 3:12 PM SLD INCLUSION TEACHER Body Mass Index 27.98 08/19/2024 3:12 PM SLD INCLUSION TEACHER Plan of Treatment Health Maintenance Due Date Last Done Comments Colon Cancer Screening-Colonoscopy 1955 Depression Screening 1955 Hepatitis B Screening 1973 Zoster Vaccine (1 of 2) 2005 Breast Cancer Screening-Mammogram 09/24/2014 014 Well Visit 65+ 2020 Covid-19 Vaccine (4 - 2023-2 5 season) 2024 07/13/2021, 11/05/2020, 11/03/2020 Dilated Eye Exam 06/14/2024 06/14/2023 Osteoporosis Screening-Bone Density Scan 12/10/2024 12/10/2022, 03/20/2022 eGFR 12/23/2024 12/24/2023, 05/20, 06/29/2020, Additional history exists Albumin Creatinine Ratio, Urine 01/20/2025 Fall Risk Assessment 01/20/2025 01/21/2024, 03/09/20 20 Lipid Panel 01/20/2025 01/21/2024, 08/18, 06/29/2014, Additional history exists Hemoglobin A1C 02/16/2025 08/19/2024, 12/2023, 01/21/2024, Additional history exists Influenza Vaccine (Season Ended) 2025 06/01/2020, 05/29/2018, 2017, Additional history exists Foot Exam 08/19/2025 08/19/2024, 01/21/2024 DTaP/Tdap/Td Vaccine (2 - Td or Tdap) 04/30/2026 04/30/2016 Hepatitis C Screening Completed 12/18/2018 Pneumococcal vaccine 65+ Completed 022, 10/20/2020, 09/08/2015, Additional history exists Procedures Procedure Name Priority Date/Time Associated Diagnosis Comments XR HAND RIGHT 3 OR MORE VIEWS Schedule Routine, Read Routine (OP Routine) 12/07/2024 2:35 PM CDT Localized swelling, mass and lump, right upper limb XR CHEST PA LATERAL 2 VIEWS Schedule Routine, Read Routine (OP Routine) 12/07/2024 2:35 PM CDT Abnormal weight loss POCT HEMOGLOBIN A1C Routine 08/19/2024 3 :14 PM SLD INCLUSION TEACHER Type 2 diabetes mellitus with hyperglycemia, with long-term current use of insulin (HCC) LIPID PANEL Routine 01/21/2024 11:50 AM CDT Type 2 diabetes mellitus without complication, without long-term current use of insulin (HCC) ALBUMIN CREATININE RATIO, URINE Routine 01/21/2024 11:50 AM CDT Type 2 diabetes mellitus without complication, without long-term current use of insulin (HCC) EGFR STAT 12/24/2023 8:02 PM CDT HM DIABETES EYE EXAM Routine 06/14/2023 8:00 AM CDT HEPATITIS PANEL, ACUTE Routine 12/18/2018 10:09 AM CDT DIGITAL MAMMOGRAPHY Routine 09/24/2013 1 0:17 AM SLD INCLUSION TEACHER from Last 3 Months or Most Recently Relevant to Health Maintenance Results * XR Hand Right 3 or More Views (12/07/2024 2:35 PM CDT) Anatomical Region Laterality Modality Upper Extremities, Hand Right Computed Radiography 12/09/2024 1:55 PM CDT Narrative 12/09/2024 1:56 PM CDT EXAM DESCRIPTION: XR HAND RIGHT 3 OR MORE VIEWS REASON FOR STUDY: swelling Pt states falling injury x 1 month - pain to the thumb area No fractures / no surgeries FINDINGS: Three views of the right hand are submitted for interpretation. No prior examination is available for comparison. 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 Erosions or cysts are present in the scaphoid and proximal hamate. No fracture seen. 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 Erosions or cysts in the scaphoid and proximal hamate. THIS IS AN ELECTRONICALLY VERIFIED FINAL REPORT 12/09/2024 1:56 PM - Electronically signed by Jm Champagne M.D. TH: TH Report ID: [id number] Reading Location: [id number] Procedure Note Jm Champagne MD - 12/09/2024 EXAM DESCRIPTION: XR HAND RIGHT 3 OR MORE VIEWS REASON FOR STUDY: swelling Pt states falling injury x 1 month - pain to the thumb area No fractures/ no surgeries FINDINGS: Three views of the right hand are submitted for interpretation. No prior examination is available for comparison. 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 Erosions or cysts are present in the scaphoidand proximal hamate. No fracture seen. IMPRESSION: Severe basal joint thumb osteoarthritis and mild thumbmetacarpophalangeal joint osteoarthritis. Erosions or cysts in the scaphoid and proximal hamate. THIS IS AN ELECTRONICALLY VERIFIED FINAL REPORT 12/09/2024 1:56 PM - Electronically signed by Jm Champagne M.D. TH: TH Report ID: [id number] Reading Location: [id number] Israel Cowan MD IMG XR PROCEDURES Final Result * XR Chest PA Lateral 2 Views (12/07/2024 2:35 PM CDT) Anatomical Region Laterality Modality Body, Chest N/A Computed Radiogr aphy 12/12/2024 7:53 AM CDT Narrative 12/12/2024 7:57 AM CDT EXAM DESCRIPTION: XR CHEST PA LATERAL 2 VIEWS REASON FOR STUDY: Weight loss - 40 pound weight loss over 6 months Hypertension controlled with medication No chest complaints No cancer TECHNIQUE: PA and lateral radiographic view(s) of the chest. COMPARISON: December 24, 2023 FINDINGS: LUNGS: Minimal blunting of the costophrenic angles bilaterally could represent very small bilateral pleural effusions and/or pleural scarring. Otherwise, no focal opacity or pneumothorax. HEART/MEDIASTINUM: Heart upper normal in size. Thoracic aorta partially calcified and mildly tortuous. LINES/TUBES: None. BONES: Moderate thoracolumbar sigmoid scoliosis. Postoperative changes of lower lumbar fusion. No acute osseous abnormality. IMPRESSION: Minimal blunting of the costophrenic angles bilaterally could represent very small bilateral pleural effusions and/or pleural scarring. Otherwise, no focal infiltrates or effusions. Heart upper normal in size. THIS IS AN ELECTRONICALLY VERIFIED FINAL REPORT 12/12/2024 7:57 AM - Electronically signed by Lamine Villa M.D. RB: RB Report ID: [id number] Reading Location: [id number] Procedure Note Lamine Villa MD - 12/12/2024 EXAM DESCRIPTION: XR CHEST PA LATERAL 2 VIEWS REASON FOR STUDY: Weight loss - 40 pound weight loss over 6 months Hypertension controlled with medication No chest complaints No cancer TECHNIQUE: PA and lateral radiographic view(s) of the chest. COMPARISON: December 24, 2023 FINDINGS: LUNGS: Minimal blunting of the costophrenic angles bilaterally could represent very small bilateral pleural effusions and/or pleural scarring. Otherwise, no focal opacity or pneumothorax. HEART/MEDIASTINUM: Heart upper normal in size. Thoracic aorta partially calcified and mildly tortuous. LINES/TUBES: None. BONES: Moderate thoracolumbar sigmoid scoliosis. Postoperative changesof lower lumbar fusion. No acute osseous abnormality. IMPRESSION: Minimal blunting of the costophrenic angles bilaterally could representvery small bilateral pleural effusions and/or pleural scarring. Otherwise, no focal infiltrates or effusions. Heart upper normal in size. THIS IS AN ELECTRONICALLY VERIFIED FINAL REPORT 12/12/2024 7:57 AM - Electronically signed by Lamine Villa M.D. RB: SCOTT Report ID: [id number] Reading Location: [id number] Israel Cowan MD IMG XR PROCEDURES Final Result * POCT hemoglobin A1c (08/19/2024 3:14 PM SLD INCLUSION TEACHER) Hemoglobin A1C, POC 6.0 4.0 - 5.6 % Blood 08/19/2024 3:14 PM SLD INCLUSION TEACHER us Angel Stephen MD POINT OF CARE TEST ORDERABLES Final Result * Albumin Creatinine Ratio, Urine (01/21/2024 11:50 AM CDT) Albumin Ur 130.0 mg/L Comment: Interpretive Data No reference range established. Current interpretive data was last revised 2018. Creatinine Ur 489.4 mg/dL [facility] Comment: Interpretive Data No reference range established. Current interpretive data was last revised 2018. Albumin Creatinine Ratio, Ur 27 1 - 29 mg/g [facility] Urine 01/21/2024 11:5 0 AM CDT 01/21/2024 6:48 PM CDT Angel Stephen MD LAB URINE ORDERABLE S Final Result [facility] [id number] [place] [address] * Lipid panel (01/21/2024 11:50 AM CDT) Cholesterol 167 30 - 199 mg/dL Comment: Interpretive Data Ages < or = 19 years Acceptable: <170 mg/dL Borderline high: 170-199 mg/dL High: >or= 200 mg/dL Ages > or = 20 years Desirable: <200 mg/dL Borderline high: 200-239 mg/dL High: >or= 240 mg/dL Literature References: 1. Expert Panel on Integrated Guidelines for Cardiovascular Health and Risk Reduction in Children and Adolescents. Pediatrics 2011;128:S213 2. NCEP Expert Panel. Circulation 2004;110:227 Current Interpretive Data was last revised on 2018. Triglycerides 115 <=149 mg/dL [facility] COATES Comment: Interpretive Data Ages < or = 9 years Acceptable: <75 mg/dL Borderline high: 75-99 mg/dL High: >or= 100 mg/dL Ages 10 to 20 years Acceptable: <90 mg/dL Borderline high: 90-129 mg/dL High: >or= 130 mg/dL Ages > or = 20 years Desirable: <150 mg/dL Borderline high: 150-199 mg/dL High: 200-499 mg/dL Very high: >or= 499 mg/dL Literature References: 1. Expert Panel on Integrated Guidelines for Cardiovascular Health and Risk Reduction in Children and Adolescents. Pediatrics 2011;128:S213 2. NCEP Expert Panel. Circulation 2004;110:227 Current Interpretive Data was last revised on 2018. HDL 53 >=40 mg/dL [facility] COATES Comment: Interpretive Data Ages < or = 19 years Acceptable: >45 mg/dL Borderline low: 40-45 mg/dL Low: <40 mg/dL Ages > or = 20 years Desirable: >or= 60 mg/dL Low: <40 mg/dL Literature References: 1. Expert Panel on Integrated Guidelines for Cardiovascular Health and Risk Reduction in Children and Adolescents. Pediatrics 2011;128:S213 2. NCEP Expert Panel. Circulation 2004;110:227 Current Interpretive Data was last revised on 2018. LDL, calculated 91 <=129 mg/dL [facility] COATES Comment: Interpretive Data Ages < or = 19 years Acceptable: <110 mg/dL Borderline high: 110-129 mg/dL High: >or= 130 mg/dL Ages > or = 20 years Optimal: <100 mg/dL Near optimal: 100-129 mg/dL Borderline high: 130-159 mg/dL High: >160 mg/dL Literature References: 1. Expert Panel on Integrated Guidelines for Cardiovascular Health and Risk Reduction in Children and Adolescents. Pediatrics 2011;128:S213 2. NCEP Expert Panel. Circulation 2004;110:227 Current Interpretive Data was last revised on 2018. Non-HDL Cholesterol 114 mg/dL [facility] COATES Comment: Interpretive Data Ages < or = 19 years Acceptable: <120 mg/dL Borderline high: 120-144 mg/dL High: >145 mg/dL Ages > or = 20 years When triglycerides are >200 mg/dL, Non-HDL cholesterol is a secondary target of therapy with treatment goals that are 30 mg/dL greater than the LDL cholesterol target. Literature References: 1. Expert Panel on Integrated Guidelines for Cardiovascular Health and Risk Reduction in Children and Adolescents. Pediatrics 2011;128:S213 2. NCEP Expert Panel. Circulation 2004;110:227 Current Interpretive Data was last revised on 2018. Chol/HDL ratio 3 [facility] Blood 01/21/2024 11:5 0 AM CDT 01/21/2024 6:49 PM CDT Angel Stephen MD LAB BLOOD ORDERABLE S Final Result [facility] [id number] [address] [place] [address] * (ABNORMAL) eGFR (12/24/2023 8:02 PM CDT) eGFR 44(L) >=60 mL/min/1. 73 m2 Comment: Interpretive Data Reference Interval Normal >/= 90 mL/min/1.73m2 Mildly decreased* 60 - 89 mL/min/1.73m2 Mildly to moderately decreased 45 - 59 mL/min/1.73m2 Moderately to severely decreased 30 - 44 mL/min/1.73m2 Severely decreased 15 - 29 mL/min/1.73m2 Kidney Failure < 15 mL/min/1.73m2 *Relative to young adult level Estimated glomerular filtration rate is determined by the 2020 CKD-EPI equation recommended by the National Kidney Foundation (A Unifying Approach to GFR Estimation: Recommendations of the NKF-ASK Task Force on Reassessing the Inclusion of Race in Diagnosing Kidney Disease, JASN 2020). The CKD-EPI equation should not be used for patients with unstable renal function and has not been validated in children and those over 70. Current interpretive data was last reviewed 2021. Blood 12/24/2023 8:02 PM CDT 12/24/2023 8:10 PM CDT us Robyn ONEILL LAB BLOOD ORDERABLES Ashley l Result [facility] [address] [facility] Department [place] [address] * HM DIABETES EYE EXAM (06/14/2023 8:00 AM CDT) Historical Provider HEALTH MAINTENANCE Edited Result - Final * Hepatitis panel, acute (12/18/2018 10:09 AM CDT) Hep A IgM Negative Negative [facility] ([facility]) Comment:Testing performed by : [facility], [address] [place] [address]., [id number] Hep B core IgM Negative Negative [facility] ([facility]) Comment:Testing performed by : [facility], [address] [place] [address]., [id number] Hep C Ab Negative Negative [facility] ([facility]) Comment:Testing performed by : [facility], [address] [place] [address]., [id number] HepBsAg Nonreactive Nonreactive [facility] ([facility]) Comment:Testing performed by : [facility], [address] [place] [address]., [id number] Blood specimen (specimen) 12/18/2018 10:09 AM CDT 12/18/2018 4:27 PM CDT Narrative [facility] ([facility]) - 12/18/2018 8:01 PM CDT us Korey Mcrae MD LAB MICROBIOLOGY - GENERAL ORD ERABLES Final Result [facility] ([facility]) 1 [facility] Department [place] [address] * DIGITAL MAMMOGRAPHY (09/24/2013 10:17 AM SLD INCLUSION TEACHER) Anatomical Region Laterality Modality Breast Mammography 09/24/2013 10:1 7 AM SLD INCLUSION TEACHER Narrative 09/30/2013 11:16 PM SLD INCLUSION TEACHER Performed by: danya Screening Mamm Bi Acc#: [id number] DATE OF EXAM: Sep 24 2013 CLINICAL HISTORY: Routine screening. RESULT: Two views of each breast obtained. No prior study available for a comparison. Minimal to mild fibroglandular pattern bilaterally. No dominant mass is demonstrated. No suspicious clusters of microcalcifications are evident. If prior mammograms become available, comparison will be made and report will be updated. Digital technology was employed plus computer-aided detection software (R2) was utilized in interpretation of these images. This facility utilizes a reminder system to notify patients of yearly mammograms. IMPRESSION: 1. NO BREAST NEOPLASM IDENTIFIED. 2. ANNUAL MAMMOGRAPHIC FOLLOWUP RECOMMENDED. BI-RADS CATEGORY 1 - NEGATIVE ADDENDUM: 09/30/13 SE/mb Comparison is made with prior film screen mammograms from [facility] of 01/04/10. Similar appearance to the prior study, allowing for differences in technique. No breast neoplasm identified. Annual mammographic follow up recommended. BI- RADS CATEGORY 1 - NEGATIVE Interpreting Physician: CHELSI ARELLANO M.D. Read on: Sep 24 2013 10:17A Transcribed by: [email or web address] On: Sep 24 2013 12:31P Approved Electronically by: CHELSI ARELLANO M.D. on: Sep 30 2013 11:16P Ordering DR: DR KAREN JORDAN Attending DR: DR KAREN JORDAN Procedure Note Provider, MD Edinson - 12/06/2016 Performed by: danya Screening Mamm Bi Acc#: [id number] DATE OF EXAM: Sep 24 2013 CLINICAL HISTORY: Routine screening. RESULT: Two views of each breast obtained. No prior study available for acomparison. Minimal to mild fibroglandular pattern bilaterally. Nodominant mass is demonstrated. No suspicious clusters ofmicrocalcifications are evident. If prior mammograms become available,comparison will be made and report will be updated. Digital technology wasemployed plus computer-aided detection software (R2) was utilized ininterpretation of these images. This facility utilizes a reminder systemto notify patients of yearly mammograms. IMPRESSION: 1. NO BREAST NEOPLASM IDENTIFIED. 2. ANNUAL MAMMOGRAPHIC FOLLOWUP RECOMMENDED. BI-RADS CATEGORY 1 -NEGATIVE ADDENDUM: 09/30/13 SE/mb Comparison is made with prior film screenmammograms from [facility] of 01/04[facility]10. Similarappearance to the prior study, allowing for differences in technique. Nobreast neoplasm identified. Annual mammographic follow up recommended.BI-RADS CATEGORY 1 - NEGATIVE Interpreting Physician: CHELSI ARELLANO M.D. Read on: Sep 24 2013 10:17A Transcribed by: [email or web address] On: Sep 24 2013 12:31P Approved Electronically by: CHELSI ARELLANO M.D. on: Sep 30 2013 11:16P Ordering DR: DR KAREN JORDAN Attending DR: DR KAREN JORDAN us Historical Provider MD SHELBY MAMMO PROCEDURES Ashley l Result from Last 3 Months or Most Recently Relevant to Health Maintenance Insurance [facility] MEDICARE [facility] MEDIC[facility] Address: [address] [address] [place] [address] [employer] MEDICARE AD[facility]ANTAGE [facility] Address: [address] [address] [place] [address] Advance Directives For more information, please contact: [phone] * Full Code (Latest Code Status on File) Date Activated Date Inactivated Comments 03/07/2020 5:23 PM 03/09/2020 4:[address] Relationship Specialty Start Date End Date Israel Cowan MD [address] [place] [id number] PCP - General 05/20/17 Ria Louise MD [address] [facility] 05/08/21
--- OUTSIDE RECORDS SUMMARY | 2025-01-24 02:41 | XMS_ITS | Encounter Summary ---
Author Organization [facility] Healthcare Address [address] [place] [address] Care Team Providers Care Shingles Roofer Helper Name Role Phone Israel Cowan MD Primary Care Provider Ria Louise MD Unavailable [phone] Encounter Details Date Type Department Care Team (Late st Contact Info) Description 01/27/2020 Telephone [facility] ([facility]) [address] [place] [id number] Domitila Zayas Social History Tobacco Use Types Packs/Day Years Used Date Smoking Tobacco: Never Comments No Sex and Gender Information Value Date Recorded Sex Assigned at Not on file Legal Sex Female 2:28 PM 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 Gender Identity Not on file Sexual Orientation Not on file documented as of this encounter Plan of Treatment Not on file documented as of this encounter Visit Diagnoses Not on filedocumented in this encounter Additional Health Concerns Infection Onset Date Last Indicated Resolved Time COVID: Suspected 06/29/2020 06/29/2020 07/01/2020 5:36 AM 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 SENIOR SERGEANT COVID19 06/30/2020 06/30/2020 07/14/2020 3:07 AM 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 SENIOR SERGEANT COVID: Suspected 12/24/2023 12/24/2023 12/24/2023 8:49 PM CDT documented as of this encounter Care Teams Shingles Roofer Helper Relationship Specialty [place] [address] [place] [address] PCP - General 05/20/17 Ria Louise MD [address] [place] [address] Endocrinology 05/08/21 documented as of this encounter
--- OUTSIDE RECORDS SUMMARY | 2025-01-24 02:41 | XMS_ITS ---
Author Name Auto Generated, Auto Generated Organization [facility] Address [address] [place] [address] Phone [phone] Care Team Providers Care Production Floater Name Role Phone Emma Woods Unavailable [phone] Baldemar Gordon Unavailable [phone] Functional Status No Results Mental Status No [...]
--- OUTSIDE RECORDS SUMMARY | 2025-01-24 02:41 | XMS_ITS | Referral Summary ---
Author Organization [facility] Address [address] [place] [address] Care Team Providers Care Sas Analyst Name Role Phone Israel Cowan MD Primary Care Provider Ria Louise MD Unavailable [phone] Encounters Date Type Department Care Team Description 12/27/2024 Telephone [facility] [address] [address] Zafar Stephen, Angel Stephen MD FSL 3 Order 12/07/2024 1:56 PM CDT - 12/07/2024 11:59 PM CDT Hospital Encounter [facility] [address] [place] [address] Abnormal weight loss; Localized swelling, mass and lump, right upper limb Discharge Disposition: Discharge to home or self care 11/30/2024 Telephone [facility] [address] [address] Provider, MD Edinson Scheduling Appointments (Schedule referral appt.) from Last 3 Months Allergies Active Allergy Reactions Criticality Noted Date [...] Date Hyperlipidemia associated with type 2 diabetes m kareem 02/02/2024 Assessment & Plan (08/19/2024 4:25 PM EMPLOYEE RELATIONS ADVISOR): Chronic, stable Continue statin therapy Assessment & Plan (04/22/2024 11:12 AM CDT): Chronic problem. On statin therapy, no changes. Assessment & Plan (02/02/2024 9:25 PM CDT): Continue statin therapy Overweight with body mass in dex (BMI) of 27 to 27.9 in adult 02/02/2024 Assessment & Plan (08/19/2024 4:26 PM EMPLOYEE RELATIONS ADVISOR): Chronic, progressively improving Advised to include resistance training/strength training exercises Assessment & Plan (02/02/2024 9:26 PM CDT): Counseled on diet and exercise Vitamin D deficiency 01/21/2024 Assessment & Plan (04/22/2024 11:12 AM CDT): Chronic problem, not at goal. Likely contributing to secondary hyperparathyroidism. Start vitamin D as discussed last visit. Multinodular goiter (nontoxic) 05/08/2021 Assessment & Plan (08/19/2024 4:25 PM EMPLOYEE RELATIONS ADVISOR): History of multiple thyroid nodules at least [...] 10/29/2015 Assessment & Plan (08/19/2024 4:25 PM EMPLOYEE RELATIONS ADVISOR): Chronic, well controlled Continue lisinopril/hydrochlorothiazide Assessment & Plan (04/22/2024 11:11 AM CDT): Chronic problem, Controlled on lisinopril HCT, carvedilol. No changes. Assessment & Plan (02/02/2024 9:26 PM CDT): Chronic, well controlled Continue Lisinopril- HCTZ Type 2 diabetes mellitus with hyperglycemia 10/16 Assessment & Plan (08/19/2024 4:26 PM EMPLOYEE RELATIONS ADVISOR): Chronic, improving control Hemoglobin A1c 6.0%, at [...] DME order process for [employer] 3 Immunizations Immunization Administration Dates Next Due Influenza, Quadrivalent, Spl it, Preservative Free, Intramuscular 08/28/2016 Social History Tobacco Use Types Packs/Day Years [...] on file Legal Sex Female 2:28 PM EMPLOYEE RELATIONS ADVISOR Gender Identity Not on file Sexual Orientation Not on file Last Filed Vital Signs Vital Sign Reading Time Taken Comments Blood Pressure 130/70 08/19/2024 3:12 PM EMPLOYEE RELATIONS ADVISOR Pulse 105 08/19/2024 3:12 PM EMPLOYEE RELATIONS ADVISOR Temperature 36.8 C (98.2 F) 12/24/2023 4:06 PM CDT Respiratory Rate 16 08/19/2024 3:12 PM EMPLOYEE RELATIONS ADVISOR Oxygen Saturation 98% 12/24/2023 10:30 PM CDT Inhaled Oxygen Concentration - - Weight 69.4 kg (153 lb) 08/19/2024 3:12 PM EMPLOYEE RELATIONS ADVISOR Height 157.5 cm (5' 2) 08/19/2024 3:12 PM EMPLOYEE RELATIONS ADVISOR Body Mass Index 27.98 08/19/2024 3:12 PM EMPLOYEE RELATIONS ADVISOR Plan of Treatment Not on file Procedures Procedure Name Priority Date/Time Associated Diagnosis Comments XR HAND RIGHT 3 OR MORE VIEWS Schedule Routine, Read Routine (OP Routine) 12/07/2024 2:35 PM CDT Localized swelling, mass and lump, right upper limb XR CHEST PA LATERAL 2 VIEWS Schedule Routine, Read Routine (OP Routine) 12/07/2024 2:35 PM CDT Abnormal weight loss POCT HEMOGLOBIN A1C Routine 08/19/2024 3 :14 PM EMPLOYEE RELATIONS ADVISOR Type 2 diabetes mellitus with hyperglycemia, with [...] DIGITAL MAMMOGRAPHY Routine 09/24/2013 1 0:17 AM EMPLOYEE RELATIONS ADVISOR from Last 3 Months or Most Recently [...] Jm Champagne M.D. TH: TH Report ID: [id number] Reading Location: [id number] Procedure Note Jm Champagne MD - 12/09/2024 [...] Jm Champagne M.D. TH: TH Report ID: [id number] Reading Location: [id number] Israel Cowan MD IMG XR PROCEDURES Final [...] Lamine Villa M.D. RB: SCOTT Report ID: [id number] Reading Location: [id number] Procedure Note Lamine Villa MD - 12/12/2024 [...] Lamine Villa M.D. RB: SCOTT Report ID: [id number] Reading Location: [id number] Israel Cowan MD IMG XR PROCEDURES Final Result * POCT hemoglobin A1c (08/19/2024 3:14 PM EMPLOYEE RELATIONS ADVISOR) Hemoglobin A1C, POC 6.0 4.0 - 5.6 % Blood 08/19/2024 3:14 PM EMPLOYEE RELATIONS ADVISOR Angel Stephen MD POINT OF CARE TEST [...] 0 AM CDT 01/21/2024 6:48 PM CDT us Angel Stephen MD LAB URINE ORDERABLE S Final Result DENISE [address] [address] Department [place] [address] * Lipid panel (01/21/2024 11:50 AM CDT) [...] on 2018. Triglycerides 115 <=149 mg/dL DENISE Comment: Interpretive Data Ages < or = [...] revised on 2018. Chol/HDL ratio 3 DENISE COATES Blood 01/21/2024 11:5 0 AM CDT 01/21/2024 6:49 PM CDT us Angel Stephen MD LAB BLOOD ORDERABLE S Final Result Performing Organization Address City/[facility]/ZIP Co de Phone Number DENISE [address] [facility] Department [place] [address] * (ABNORMAL) eGFR (12/24/2023 8:02 PM CDT) [...] 8:02 PM CDT 12/24/2023 8:10 PM CDT Robyn ONEILL LAB BLOOD ORDERABLES Ashley l Result JENIFERRAGHAVENDRA DIXON (LUIS MANUEL) 1 [facility] Department [place] [address] * HM DIABETES EYE EXAM (06/14/2023 8:00 AM CDT) Historical Provider HEALTH MAINTENANCE Edited Result - Final * Hepatitis panel, acute (12/18/2018 10:09 AM CDT) Hep A IgM Negative Negative DENISE DIXON (LUIS MANUEL) Comment:Testing performed by : [facility], [address] [place] [address], [place]., [address] Hep B core IgM Negative Negative DENISE DIXON (LUIS MANUEL) Comment:Testing performed by : [facility], [address] [place] [address]., [address] Hep C Ab Negative Negative DENISE DIXON (LUIS MANUEL) Comment:Testing performed by : [facility], [address] [place] [address], [place]., [address] HepBsAg Nonreactive Nonreactive DENISE DIXON (LUIS MANUEL) Comment:Testing performed by : [facility], [address] [place] [address]., [address] Blood specimen (specimen) 12/18/2018 10:09 AM CDT 12/18/2018 4:27 PM CDT Narrative DENISE DIXON (LUIS MANUEL) - 12/18/2018 8:01 PM CDT us Korey Mcrae MD LAB MICROBIOLOGY - GENERAL ORD ERABLES Final Result DENISE DIXON (LUIS MANUEL) 1 [facility] Department [place] [address] * DIGITAL MAMMOGRAPHY (09/24/2013 10:17 AM EMPLOYEE RELATIONS ADVISOR) Anatomical Region Laterality Modality Breast Mammography 09/24/2013 10:1 7 AM EMPLOYEE RELATIONS ADVISOR Narrative 09/30/2013 11:16 PM EMPLOYEE RELATIONS ADVISOR Performed by: danya Screening [facility]amm Bi Acc#: [id number] DATE OF EXAM: Sep 24 2013 CLINICAL [...] made with prior film screen mammograms from [facility] of 01/04/10. Similar appearance to the prior [...] DR: DR KAREN JORDAN Procedure Note Provider, Edinson, - 12/06/2016 Performed by: danya Screening Mamm Bi Acc#: [id number] DATE OF EXAM: Sep 24 2013 CLINICAL [...] RECOMMENDED. BI-RADS CATEGORY 1 -NEGATIVE ADDENDUM: 09/30/13 /khadijah Comparison is made with prior film screenmammograms from [facility] of 01/04/10. Similarappearance to the prior study, [...] KAREN JORDAN Attending DR: DR KAREN JORDAN Historical Provider MD SHELBY MAMMO PROCEDURES Ashley l Result from Last 3 Months or Most Recently Relevant to Health Maintenance Insurance [address] [facility] [id number] MEDICARE AD[facility]ANTAGE [facility] MEDIC[facility] Address: [address] [place], [place] [phone] [address] [facility] [id number] MEDICARE ADVANTAGE [facility] MEDICARE Address: [address] [place] [phone] Advance Directives For more information, please contact: [phone] * Full Code (Latest Code Status on File) Date Activated Date Inactivated Comments 03/07/2020 5:23 PM 03/09/2020 4:25 PM Care Teams Sas Analyst Relationship Specialty [place] [address] [place] [address] PCP - General 05/20/17 Ria Louise MD [address] [address] Endocrinology 05/08/21
--- OUTSIDE RECORDS SUMMARY | 2025-02-04 00:51 | XMS_ITS | Clinical Summary ---
Author Organization [facility] Facility Address [address] [address] Care Team Providers Care Lot Porter Name Role Phone Israel Cowan MD Primary Care Provider [phone] Social History Tobacco Use Types Packs/Day Years [...] patient's age to complete this topic Insurance [facility] Medicare Care Teams Lot Porter Relationship Specialty Start Date End Date Israel Cowan MD [address] [place] [address] PCP - General Internal Medicine 07/08/23
--- OUTSIDE RECORDS SUMMARY | 2025-02-04 00:51 | XMS_ITS | Data Portability ---
Author Organization [place] - [facility] Sleep Number, Main Office Address [address] [place] [address] Care Team Providers Care Trailer Mechanic Name Role Phone IVÁN DAVIS Primary Care Provider Assessment No assessment recorded. Plan of Treatment Reminders Order Date Submit Date Provider Last Modified By Organization Details Last Modified Time Details Appointments None recorded. Lab None recorded. Referral nephrologis t referral - secondary hyperparath yroidism 2022 023 [place], [address], [address], [place], [address], 3 15:55:16 Procedures None recorded. Surgeries None [...] 12:23:37 glimepiride 1 mg tablet 2022 023 [email or web address] Not available 3 12:25:06 OneTouch Verio test strips 2022 023 GUSTABO Not available 3 12:27:54 atorvastati n 40 mg tablet 2022 023 [email or web address] Not available 12:26:20 Patient TargetsNo targets recorded. Patient InstructionsNo instructions recorded. 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 [...] 2016, 39(Winter ppl.1 ):s13 -s22 Not Available [facility] (Lab) [address] [place], [address], 12/06/2021 19:39:44 12/07/19 22 12/06/2021 TSH thyroid-stim ulating hormone 0.606 uIU/m L 0.465- 4.680 Not Available [facility] (Lab) [address] [place], [address], 12/06/2021 17:40:26 12/07/19 22 12/06/2021 T4 FREE free T4 1.41 NG/dL 0.78-2 .19 Not Available [facility] (Lab) [address] [place], [address], 12/06/2021 17:31:28 12/07/19 22 12/06/2021 MICRO ALBUM N RNDM W/CRE AT RATIO ur creat 153.30 mg/dL REFER ENCE RANGE NOT ESTAB LISHE D FOR RANDO M URINE CREAT ININE Not Available [facility] (Lab) [address] [place], [address], 12/06/2021 17:26:24 12/07/19 22 12/06/2021 MICRO ALBUM N RNDM W/CRE AT RATIO microalbumin , urine 6.6 mg/L 0.0-16 .6 Not Available [facility] (Lab) [address] [place], [address], 12/06/2021 17:26:24 12/07/19 22 12/06/2021 MICRO ALBUM [...] VOL. 26: S94-S , 2002 Not Available [facility] (Lab) [address] [place], [address], 12/06/2021 17:26:24 12/07/19 22 12/06/2021 COMPR EHENS JÚNIOR METAB OLIC PANEL sodium 137 mmol/ L 137-14 5 Not Available [facility] (Lab) [address] [place], [address], 12/06/2021 17:10:51 12/07/19 22 12/06/2021 COMPR EHENS JÚNIOR METAB OLIC PANEL potassium 4.2 mmol/ L 3.5-5. 1 Not Available [facility] (Lab) [address] [place], [address], 12/06/2021 17:10:51 12/07/19 22 12/06/2021 COMPR EHENS JÚNIOR METAB OLIC PANEL chloride 100 mmol/ L 98-107 Not Available [facility] (Lab) [address] [place], [address], 12/06/2021 17:10:51 12/07/19 22 12/06/2021 COMPR EHENS JÚNIOR METAB OLIC PANEL carbon dioxide 26 mmol/ L 22-30 Not Available [facility] (Lab) [address] [place], [address], 12/06/2021 17:10:51 12/07/19 22 12/06/2021 COMPR EHENS JÚNIOR METAB OLIC PANEL anion gap 15.2 mmol/ L 14-22 Not Available [facility] (Lab) [address] [place], [address], 12/06/2021 17:10:51 12/07/19 22 12/06/2021 COMPR EHENS JÚNIOR METAB OLIC PANEL glucose 187 mg/dL 70-99 high Not Available [facility] (Lab) [address] [place], [address], 12/06/2021 17:10:51 12/07/19 22 12/06/2021 COMPR EHENS JÚNIOR METAB OLIC PANEL BUN 15 mg/dL 8-19 Not Available [facility] (Lab) [address] [place], [address], 12/06/2021 17:10:51 12/07/19 22 12/06/2021 COMPR EHENS JÚNIOR METAB OLIC PANEL creatinine 1.20 mg/dL 0.66-1 .25 Not Available [facility] (Lab) [address] [place], [address], 12/06/2021 17:10:51 12/07/19 22 12/06/2021 COMPR EHENS JÚNIOR METAB OLIC PANEL GFR 54 Refer ence Range : [place] ge GFR Healt hy Adult : >60 [...] calcu lator is avail able on the [facility] websi te: https ://ww w.kid yony.o rg/pr ofess ional s/kdo qi/gf r_cal culat or Not Available [facility] (Lab) [address] [place], [address], 12/06/2021 17:10:51 12/07/19 22 12/06/2021 COMPR EHENS JÚNIOR METAB OLIC PANEL alkaline phosphatase 105 U/L 38-126 Not Available [facility] (Lab) [address] [place], [address], 12/06/2021 17:10:51 12/07/19 22 12/06/2021 COMPR EHENS JÚNIOR METAB OLIC PANEL alanine aminotransfe rase 16 U/L 0-35 Not Available [facility] (Lab) [address] [place], [address], 12/06/2021 17:10:51 12/07/19 22 12/06/2021 COMPR EHENS JÚNIOR METAB OLIC PANEL aspartate aminotransfe rase 28 U/L 15-37 Not Available [facility] (Lab) [address] [place], [address], 12/06/2021 17:10:51 12/07/19 22 12/06/2021 COMPR EHENS JÚNIOR METAB OLIC PANEL bilirubin, total 0.60 mg/dL 0.20-1 .30 Not Available [facility] (Lab) [address] [place], [address], 12/06/2021 17:10:51 12/07/19 22 12/06/2021 COMPR EHENS JÚNIOR METAB OLIC PANEL calcium 9.1 mg/dL 8.4-10 .2 Not Available [facility] (Lab) [address] [place], [address], 12/06/2021 17:10:51 12/07/19 22 12/06/2021 COMPR EHENS JÚNIOR METAB OLIC PANEL total protein 8.2 g/dL 6.3-8. 2 Not Available [facility] (Lab) [address] [place], [address], 12/06/2021 17:10:51 12/07/19 22 12/06/2021 COMPR EHENS JÚNIOR METAB OLIC PANEL albumin 4.1 g/dL 3.0-4. 4 Not Available [facility] (Lab) [address] [place], [address], 12/06/2021 17:10:51 12/07/19 22 12/06/2021 COMPR EHENS JÚNIOR METAB OLIC PANEL globulin 4.1 g/dL 2.6-4. 2 Not Available [facility] (Lab) [address] [place], [address], 12/06/2021 17:10:51 12/07/19 22 12/06/2021 COMPR EHENS JÚNIOR METAB OLIC PANEL A/G ratio 1.0 ratio 1.0-2. 0 Not Available [facility] (Lab) [address] [place], [address], 12/06/2021 17:10:51 12/07/19 22 12/06/2021 LIPID PANEL cholesterol 150 mg/dL 140-19 9 NIH SANDIP NSUS RECOM MENDA TION FOR PRINCE STERO L: ADULT CHILD LOW RISK: <200 <170 BORDE RLINE : <200- 239 ----- HIGH RISK: >240 >200 Not Available [facility] (Lab) [address] [place], [address], 12/06/2021 17:10:45 12/07/19 22 12/06/2021 LIPID PANEL triglyceride s 120 mg/dL 0-150 NIH SANDIP NSUS REPOR T RECOM MENDA TION FOR TRIGL YCERI JOSE ARMANDO: ADULT CHILD LOW RISK: <150 ----- BODER LINE: 150-1 99 ----- HIGH RISK: >200 ----- Not Available [facility] (Lab) [address] [place], [address], 12/06/2021 17:10:45 12/07/19 22 12/06/2021 LIPID PANEL HDL cholesterol 47 mg/dL 40- Not Available [facility] (Lab) [address] [place], [address], 12/06/2021 17:10:45 12/07/19 22 12/06/2021 LIPID PANEL [...] WILL NOT BE REPOR BEST. Not Available [facility] (Lab) [address] [place], [address], 12/06/2021 17:10:45 12/06/19 23 12/05/2022 PARAT HY.HO RM(PT H)INT ACT-W /O CA intact parathyroid hormone 135.0 pg/mL 24.0-7 8.0 high Pleas e note new refer ence range effec tive 09/13 . Not Available [facility] (Lab) [address] [place], [address], 12/05/2022 11:50:57 12/06/19 23 12/05/2022 VITAM IN D 25-HY DROXY vd25oh 44.6 NG/mL 30-100 Vitam in D Statu s: Defic ient: <20 ng/mL Insuf ficie nt: 20-29 ng/mL Suffi cient : 30-10 0 ng/mL Not Available [facility] (Lab) [address] [place], [address], 12/05/2022 11:51:11 12/06/19 23 12/05/2022 COMPR EHENS JÚNIOR METAB OLIC PANEL sodium 137 mmol/ L 137-14 5 Not Available [facility] (Lab) [address] [place], [address], 12/05/2022 11:58:25 12/06/19 23 12/05/2022 COMPR EHENS JÚNIOR METAB OLIC PANEL potassium 4.2 mmol/ L 3.5-5. 1 Not Available [facility] (Lab) [address] [place], [address], 12/05/2022 11:58:25 12/06/19 23 12/05/2022 COMPR EHENS JÚNIOR METAB OLIC PANEL chloride 101 mmol/ L 98-107 Not Available [facility] (Lab) [address] [place], [address], 12/05/2022 11:58:25 12/06/19 23 12/05/2022 COMPR EHENS JÚNIOR METAB OLIC PANEL carbon dioxide 29 mmol/ L 22-30 Not Available [facility] (Lab) [address] [place], [address], 12/05/2022 11:58:25 12/06/19 23 12/05/2022 COMPR EHENS JÚNIOR METAB OLIC PANEL anion gap 11.2 mmol/ L 14-22 low Not Available [facility] (Lab) [address] [place], [address], 12/05/2022 11:58:25 12/06/19 23 12/05/2022 COMPR EHENS JÚNIOR METAB OLIC PANEL glucose 108 mg/dL 70-99 high Not Available [facility] (Lab) [address] [place], [address], 12/05/2022 11:58:25 12/06/19 23 12/05/2022 COMPR EHENS JÚNIOR METAB OLIC PANEL BUN 16 mg/dL 8-19 Not Available [facility] (Lab) [address] [place], [address], 12/05/2022 11:58:25 12/06/19 23 12/05/2022 COMPR EHENS JÚNIOR METAB OLIC PANEL creatinine 1.21 mg/dL 0.66-1 .25 Not Available [facility] (Lab) [address] [place], [address], 12/05/2022 11:58:25 12/06/19 23 12/05/2022 COMPR EHENS JÚNIOR METAB OLIC PANEL GFR 54 Refer ence Range : [place] ge GFR Healt hy Adult : >60 [...] calcu lator is avail able on the [facility] websi te: https ://ww w.kid yony.o rg/pr ofess ional s/kdo qi/gf r_cal culat or Not Available [facility] (Lab) [address] [place], [address], 12/05/2022 11:58:25 12/06/19 23 12/05/2022 COMPR EHENS JÚNIOR METAB OLIC PANEL alkaline phosphatase 89 U/L 38-126 Not Available [facility] (Lab) [address] [place], [address], 12/05/2022 11:58:25 12/06/19 23 12/05/2022 COMPR EHENS JÚNIOR METAB OLIC PANEL alanine aminotransfe rase 49 U/L 0-35 high Not Available [facility] (Lab) [address] [place], [address], 12/05/2022 11:58:25 12/06/19 23 12/05/2022 COMPR EHENS JÚNIOR METAB OLIC PANEL aspartate aminotransfe rase 52 U/L 15-37 high Not Available [facility] (Lab) [address] [place], [address], 12/05/2022 11:58:25 12/06/19 23 12/05/2022 COMPR EHENS JÚNIOR METAB OLIC PANEL bilirubin, total 0.80 mg/dL 0.20-1 .30 Not Available [facility] (Lab) [address] [place], [address], 12/05/2022 11:58:25 12/06/19 23 12/05/2022 COMPR EHENS JÚNIOR METAB OLIC PANEL calcium 9.3 mg/dL 8.4-10 .2 Not Available [facility] (Lab) [address] [place], [address], 12/05/2022 11:58:25 12/06/19 23 12/05/2022 COMPR EHENS JÚNIOR METAB OLIC PANEL total protein 8.4 g/dL 6.3-8. 2 high Not Available [facility] (Lab) [address] [place], [address], 12/05/2022 11:58:25 12/06/19 23 12/05/2022 COMPR EHENS JÚNIOR METAB OLIC PANEL albumin 4.2 g/dL 3.0-4. 4 Not Available [facility] (Lab) [address] [place], [address], 12/05/2022 11:58:25 12/06/19 23 12/05/2022 COMPR EHENS JÚNIOR METAB OLIC PANEL globulin 4.2 g/dL 2.6-4. 2 Not Available [facility] (Lab) [address] [place], [address], 12/05/2022 11:58:25 12/06/19 23 12/05/2022 COMPR EHENS JÚNIOR METAB OLIC PANEL A/G ratio 1.0 ratio 1.0-2. 0 Not Available [facility] (Lab) [address] [place], [address], 12/05/2022 11:58:25 12/06/19 23 12/05/2022 LIPID PANEL cholesterol 147 mg/dL 140-19 9 NIH SANDIP NSUS RECOM MENDA TION FOR PRINCE STERO L: ADULT CHILD LOW RISK: <200 <170 BORDE RLINE : <200- 239 ----- HIGH RISK: >240 >200 Not Available [facility] (Lab) [address] [place], [address], 12/05/2022 11:58:31 12/06/19 23 12/05/2022 LIPID PANEL triglyceride s 118 mg/dL 0-150 NIH SANDIP NSUS REPOR T RECOM MENDA TION FOR TRIGL YCERI JOSE ARMANDO: ADULT CHILD LOW RISK: <150 ----- BODER LINE: 150-1 99 ----- HIGH RISK: >200 ----- Not Available [facility] (Lab) [address] [place], [address], 12/05/2022 11:58:31 12/06/19 23 12/05/2022 LIPID PANEL HDL cholesterol 50 mg/dL 40- Not Available [facility] (Lab) [address] [place], [address], 12/05/2022 11:58:31 12/06/19 23 12/05/2022 LIPID PANEL [...] WILL NOT BE REPOR BEST. Not Available [facility] (Lab) [address] [place], [address], 12/05/2022 11:58:31 12/06/19 23 12/05/2022 PHOSP HORUS phosphorus 4.1 mg/dL 2.5-4. 5 Not Available [facility] (Lab) [address] [place], [address], 12/05/2022 11:58:33 12/06/19 23 12/05/2022 T4 FREE free T4 1.04 NG/dL 0.78-2 .19 Not Available [facility] (Lab) [address] [place], [address], 12/05/2022 12:02:43 12/06/19 23 12/05/2022 TSH thyroid-stim ulating hormone 1.260 uIU/m L 0.465- 4.680 Not Available [facility] (Lab) [address] [place], [address], 12/05/2022 12:06:04 12/06/19 23 12/05/2022 HEMOG LOBIN A1C HA1C 6.4 % 4.0-6. 0 high Diabe nevin Scree emanuel Crite dillon: <5.7% Consi stent with absen ce of diabe nevin 5.7-6 .4% Consi stent with incre ased risk for diabe nevin (pred iabet es) >OR=6 .5% Consi stent with diabe nevin REFER ENCE: Diabe nevin Care 2016, 39(Wintre ppl.1 ):s13 -s22 Not Available [facility] (Lab) [address] [place], [address], 12/05/2022 13:49:15 12/06/19 23 12/05/2022 MICRO ALBUM N RNDM W/CRE AT RATIO ur creat 83.15 mg/dL REFER ENCE RANGE NOT ESTAB LISJONATHAN D FOR RON M URINE CREAT ININE Not Available [facility] (Lab) [address] [place], [address], 12/05/2022 14:25:34 12/06/19 23 12/05/2022 MICRO ALBUM N RNDM W/CRE AT RATIO microalbumin , urine <6.0 mg/L 0.0-16 .6 Not Available [facility] (Lab) [address] [place], [address], 12/05/2022 14:25:34 04/07/20 23 04/07/2023 MICRO ALBUM N RNDM W/CRE AT RATIO ur creat 173.53 mg/dL REFER ENCE RANGE NOT ESTAB LISHE D FOR SUKUMARO M URINE CREAT ININE Not Available [facility] (Lab) [address] [place], [address], 04/07/2023 14:09:19 04/07/20 23 04/07/2023 MICRO ALBUM N RNDM W/CRE AT RATIO microalbumin , urine <6.0 mg/L 0.0-16 .6 Not Available [facility] (Lab) [address] [place], [address], 04/07/2023 14:09:19 04/07/20 23 04/07/2023 PARAT HY.HO RM(PT H)INT ACT-W /O CA intact parathyroid hormone 174.7 pg/mL 24.0-7 8.0 high Pleas e note new refer ence range effec tive 09/13 . Not Available [facility] (Lab) [address] [place], [address], 04/07/2023 14:36:25 04/07/20 23 04/07/2023 COMPR EHENS JÚNIOR METAB OLIC PANEL sodium 141 mmol/ L 137-14 5 Not Available [facility] (Lab) [address] [place], [address], 04/07/2023 14:43:28 04/07/20 23 04/07/2023 COMPR EHENS JÚNIOR METAB OLIC PANEL potassium 3.5 mmol/ L 3.5-5. 1 Not Available [facility] (Lab) [address] [place], [address], 04/07/2023 14:43:28 04/07/20 23 04/07/2023 COMPR EHENS JÚNIOR METAB OLIC PANEL chloride 103 mmol/ L 98-107 Not Available [facility] (Lab) [address] [place], [address], 04/07/2023 14:43:28 04/07/20 23 04/07/2023 COMPR EHENS JÚNIOR METAB OLIC PANEL carbon dioxide 28 mmol/ L 22-30 Not Available [facility] (Lab) [address] [place], [address], 04/07/2023 14:43:28 04/07/20 23 04/07/2023 COMPR EHENS JÚNIOR METAB OLIC PANEL anion gap 13.5 mmol/ L 14-22 low Not Available [facility] (Lab) [address] [place], [address], 04/07/2023 14:43:28 04/07/20 23 04/07/2023 COMPR EHENS JÚNIOR METAB OLIC PANEL glucose 117 mg/dL 70-99 high Not Available [facility] (Lab) [address] [place], [address], 04/07/2023 14:43:28 04/07/20 23 04/07/2023 COMPR EHENS JÚNIOR METAB OLIC PANEL BUN 19 mg/dL 8-19 Not Available [facility] (Lab) [address] [place], [address], 04/07/2023 14:43:28 04/07/20 23 04/07/2023 COMPR EHENS JÚNIOR METAB OLIC PANEL creatinine 1.33 mg/dL 0.66-1 .25 high Not Available [facility] (Lab) [address] [place], [address], 04/07/2023 14:43:28 04/07/20 23 04/07/2023 COMPR EHENS JÚNIOR METAB OLIC PANEL GFR 48 Refer ence Range : [place] GFR Healt hy Adult : >60 [...] calcu lator is avail able on the [facility] websi te: https :[email or web address] bhakta.o skip/pr ofess ional s/kdo qi/gf r_cal culat or Not Available [facility] (Lab) [address] [place], [address], 04/07/2023 14:43:28 04/07/20 23 04/07/2023 COMPR EHENS JÚNIOR METAB OLIC PANEL alkaline phosphatase 83 U/L 38-126 Not Available [facility] (Lab) [address] [place], [address], 04/07/2023 14:43:28 04/07/20 23 04/07/2023 COMPR EHENS JÚNIOR METAB OLIC PANEL alanine aminotransfe rase 25 U/L 0-35 Not Available [facility] (Lab) [address] [place], [address], 04/07/2023 14:43:28 04/07/20 23 04/07/2023 COMPR EHENS JÚNIOR METAB OLIC PANEL aspartate aminotransfe rase 35 U/L 15-37 Not Available [facility] (Lab) [address] [place], [address], 04/07/2023 14:43:28 04/07/20 23 04/07/2023 COMPR EHENS JÚNIOR METAB OLIC PANEL bilirubin, total 0.90 mg/dL 0.20-1 .30 Not Available [facility] (Lab) [address] [place], [address], 04/07/2023 14:43:28 04/07/20 23 04/07/2023 COMPR EHENS JÚNIOR METAB OLIC PANEL calcium 9.2 mg/dL 8.4-10 .2 Not Available [facility] (Lab) [address] [place], [address], 04/07/2023 14:43:28 04/07/20 23 04/07/2023 COMPR EHENS JÚNIOR METAB OLIC PANEL total protein 7.8 g/dL 6.3-8. 2 Not Available [facility] (Lab) [address] [place], [address], 04/07/2023 14:43:28 04/07/20 23 04/07/2023 COMPR EHENS JÚNIOR METAB OLIC PANEL albumin 4.1 g/dL 3.0-4. 4 Not Available [facility] (Lab) [address] [place], [address], 04/07/2023 14:43:28 04/07/20 23 04/07/2023 COMPR EHENS JÚNIOR METAB OLIC PANEL globulin 3.7 g/dL 2.6-4. 2 Not Available [facility] (Lab) [address] [place], [address], 04/07/2023 14:43:28 04/07/20 23 04/07/2023 COMPR EHENS JÚNIOR METAB OLIC PANEL A/G ratio 1.1 ratio 1.0-2. 0 Not Available [facility] (Lab) [address] [place], [address], 04/07/2023 14:43:28 04/07/20 23 04/07/2023 PHOSP HORUS phosphorus 3.5 mg/dL 2.5-4. 5 Not Available [facility] (Lab) [address] [place], [address], 04/07/2023 14:43:33 04/07/20 23 04/07/2023 LIPID PANEL cholesterol 146 mg/dL 140-19 9 NIH SANDIP NSUS RECOM MENDA TION FOR PRINCE STERO L: ADULT CHILD LOW RISK: <200 <170 BORDE RLINE : <200- 239 ----- HIGH RISK: >240 >200 Not Available [facility] (Lab) [address] [place], [address], 04/07/2023 14:43:38 04/07/20 23 04/07/2023 LIPID PANEL triglyceride s 79 mg/dL 0-150 NIH SANDIP NSUS REPOR T RECOM MENDA TION FOR TRIGL YCERI JOSE ARMANDO: ADULT CHILD LOW RISK: <150 ----- BODER LINE: 150-1 99 ----- HIGH RISK: >200 ----- Not Available [facility] (Lab) [address] [place], [address], 04/07/2023 14:43:38 04/07/20 23 04/07/2023 LIPID PANEL HDL cholesterol 47 mg/dL 40- Not Available [facility] (Lab) [address] [place], [address], 04/07/2023 14:43:38 04/07/20 23 04/07/2023 LIPID PANEL [...] WILL NOT BE REPOR BEST. Not Available [facility] (Lab) [address] [place], [address], 04/07/2023 14:43:38 04/07/20 23 04/07/2023 HEMOG LOBIN A1C HA1C 6.3 % 4.0-6. 0 high Diabe nevin Nikolase emanuel Cristeffen dillon: <5.7% Consi stent with absen ce of diabe nevin 5.7-6 .4% Consi stent with incre ased risk for diabe nevin (pred iabet es) >OR=6 .5% Consi stent with diabe nevin REFER ENCE: Diabe nevin Care 2016, 39(Winter ppl.1 ):s13 -s22 Not Available [facility] (Lab) [address] [place], [address], 04/07/2023 14:51:58 04/07/20 23 04/07/2023 T4 FREE free T4 1.20 NG/dL 0.78-2 .19 Not Available [facility] (Lab) [address] [place], [address], 04/07/2023 15:24:35 04/07/20 23 04/07/2023 TSH thyroid-stim ulating hormone 0.417 uIU/m L 0.465- 4.680 low Not Available [facility] (Lab) [address] [place], [address], 04/07/2023 15:25:39 04/07/20 23 04/07/2023 VITAM IN D 25-HY DROXY [id number] 31.1 NG/mL 30-100 Vitam in D Statu s: Defic ient: <20 ng/mL Insuf ficie nt: 20-29 ng/mL Suffi cient : 30-10 0 ng/mL Not Available [facility] (Lab) [address] [place], [address], 04/07/2023 15:53:44 04/09/20 23 04/09/2023 CALCI UM 24 HR URINE ur calcm <1.0 mg/dL REFER ENCE RANGE NOT ESTAB THAIS Beltran FOR RON M URINE CALCI UM Not Available [facility] (Lab) [address] [place], [address], 04/09/2023 22:06:32 04/09/20 23 04/09/2023 CALCI UM 24 HR URINE tot vol 1900 mL 600-20 00 Not Available [facility] (Lab) [address] [place], [address], 04/09/2023 22:06:32 12/11/19 23 03/20/2022 DEXA, axial skele ton No observ ation record ed. [email or web address] [facility] [address] [place], [address], 12/25/2022 17:30:35 Result Notes None recorded. Problems Name Problem SNOMED Code Status Onset Date Resolution Date Notes Provider Name and Address Organization Details Recorded Time Vitamin D deficiency 37750494 Active 2021 Not Available [facility] 3 18:35:19 Dyslipidemia 109465764 Active 2021 Not Available [facility] 3 18:35:19 Type 2 diabetes mellitus 88456372 Active 2018 Not Available [facility] 3 18:35:19 Uncontrolled type 2 diabetes mellitus 008559423 Active 2021 Not Available [facility] 3 18:35:19 Essential hypertension 67091933 Active 2021 Not Available [facility] 3 18:35:19 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 Not Available [facility] 3 18:35:19 Candidiasis of vagina 47682072 Active 2021 Not Available [facility] 3 18:35:19 Well controlled type 2 diabetes mellitus 038179117 Active 2022 Ria Louise MD [address], [facility] [address], [place], [address] , [facility] [employer] [facility] 3 12:22:10 Chronic kidney disease 006864330 Active 2022 Ria Louise MD [address], [address], [place], [address] , [place] [facility] 12:25:18 Notes:Some problems listed i n Document: #[id number] could not be added to this patient's chart. Please review this document and add these problems to the patient's chart manually as needed. Problem Notes None recorded. Procedures Surgical History Date Name Laterality Status Provider Name and Address Organization Details Recorded Time parathyroidectomy completed Not Available [facility] 10/16/2022 18:34:45 Imaging Results None recorded. Procedure Notes None recorded. Medical Equipment None Reported. Allergies Allergen ID Allergen Name Allergen Category Reaction Reaction Severity Criticality Documentation Date Start Date Code Code System Note Provider Name and Address Organization Details Recorded Time 81432 prednison e medicatio n Not available Not available Not available 10/16/2022 8640 RxNorm Not Available [facility] 3 18:36:17 91047 lidocaine medicatio n Not available Not available Not available 10/16/2022 6387 RxNorm Not Available [facility] 3 18:36:17 04885 Lantus medicatio n Not available Not available Not available 10/16/2022 81003 1 RxNorm Not Available [facility] 3 18:36:17 Medications Name Sig Start Date [...] % 98 % 94 /min 98.3 [degF] 42072.2 2 g 120 mm[Hg] 74 mm[Hg] Not Available [facility] 3 18:35:13 Date Recorded Body mass index (BMI) Body height Oxygen saturation Oxygen saturation in Arterial blood by Pulse oximetry Heart rate Body temperature Body weight Systolic blood pressure Diastolic blood pressure Provider Name and Address Organization Details Last Updated DateTime 2 31.7 kg/m2 160.02 cm 98 % 98 % 80 /min 98 [degF] 77890.0 3 g 110 mm[Hg] 80 mm[Hg] Not Available [facility] 3 18:35:13 Date Recorded Body height Body mass index (BMI) Body weight Body temperature Respiratory rate Heart rate Systolic blood pressure Diastolic blood pressure Provider Name and Address Organization Details Last Updated DateTime 3 160.02 cm 28.9 kg/m2 77514.5 6 g 97.7 [degF] 16 /min 73 /min 143 mm[Hg] 81 mm[Hg] Jammie Anguiano RN [place] [facility] [place] [employer] [facility] 3 12:06:04 Date Recorded Body mass index (BMI) Body height Oxygen saturation Oxygen saturation in Arterial blood by Pulse oximetry Heart rate Body temperature Body weight Systolic blood pressure Diastolic blood pressure Provider Name and Address Organization Details Last Updated DateTime 2 34.2 kg/m2 160.02 cm 99 % 99 % 70 /min 97.7 [degF] 51055.3 3 g 105 mm[Hg] 65 mm[Hg] Not Available [facility] 3 18:35:13 Social History Question Answer Notes LastModified by [employer] Details LastModified Time Tobacco Smoking Status Never Smoker Not Available [facility] 10/16/2022 18:34:44 Are You Blind Or Do You Have Difficulty Seeing? No [id number] Information not available 10/16/2022 What Is Your Level Of Caffeine Consumption? None [id number] [id number] Information not available 10/16/2022 In The 14 Days Before Symptom Onset, Have You Had Close Contact With A Laboratory-confirm ed COVID-19 While That Case Was Ill? No [id number] 026 Information not available 10/16/2022 In The 14 Days Before Symptom Onset, Have You Had Close Contact With A Person Who Is Under Investigation For COVID-19 While That Person Was Ill? No [id number].[id number] 026 Information not available 10/16/2022 Are You Deaf Or Do You Have Serious Difficulty Hearing? No [id number].[id number] 026 Information not available 10/16/2022 What Type Of Diet Are You Following? REGULAR MIGRATION.[id number] 026 Information not available 10/16/2022 What Is Your Relationship Status? Single [id number].[id number] 026 Information not available 10/16/2022 Have You Recently Traveled Abroad? No [id number].[id number] 026 Information not available 10/16/2022 Do You Have Difficulty Walking Or Climbing Stairs? No [id number].[id number] 026 Information not available 10/16/2022 Do You Have Any Dietary Restrictions? No MIGRATION.[id number] 026 Information not available 10/16/2022 Sex: Female Functional Status Question Answer Note LastModified by Organizat ion Details LastModified Time What is your level of alcohol consumption? None [id number] 026 Information not available 10/16/2022 Do you have transportation difficulties? No MIGRATION.[id number] 026 Information not available 10/16/2022 Are you able to walk? YESWOREST MIGRATION.[id number] 026 Information not available 10/16/2022 Do you have difficulty doing errands alone? No MIGRATION.[id number] 026 Information not available 10/16/2022 Are you able to care for yourself? Yes MIGRATION.[id number] 026 Information not available 10/16/2022 Do you have difficulty dressing or bathing? No MIGRATION.[id number] 026 Information not available 10/16/2022 Mental Status Question Answer Note LastModified by Organizat ion Details LastModified Time Do you have difficulty concentrating, remembering or making decisions? No [id number].[id number] 6 Information not available 10/16/2022 Family History Nothing Reported. Medical History Condition Response DIABETES, TYPE Y PARATHYROID DISEASE Y HYPERTENSION Y Gynecological HistoryNo gynecological history recorded. Obstetrics History GPAL:G 0 P 0 0 0 0 Past Encounters Encounter ID Performer Location Encounter Start Date Encounter Closed Date Diagnosis/Indication Diagnosis SNOMED-CT Code Diagnosis ICD10 Code Diagnosis Note [id number] [facility] [place] [address] [place] [address] 12/10/2021 00:00:00 12/10/2021 12:18:37 [id number] [facility] [place] [address] [place] [address] 03/18/2022 00:00:00 03/18/2022 15:48:28 [id number] [facility] [place] [address] [place] [address] 07/30/2022 00:00:00 07/30/2022 15:33:07 [id number] Ria Louise MD [facility] [place] [address] [place] [address] 04/15/2023 11:48:50 04/15/2023 12:51:32 Well controlled type 2 diabetes mellitus 696394641 E11.9 a1c of 6.3% - she is [...] and maintain log. Chronic ki dney disease 829402020 N18.9 She has evidence of secondary hyperparat hyroidism with normal calcium - Cr of 1.3 with GFR of 48 ml/min with no proteinuri a- due to hx of diabetes and CKD would recommend evaluation by nephrology . Dyslipidemia [id number] E 78.5 Continue on statin therapy. Spent [...] Recorded Advance Directives Directive None Recorded Payers Insurance Date Sequence Insurance Name Policy Number Policy Nash Covered Member ID Nash Member ID Guarantor Name 05/24/2024 1 [facility] (MEDICARE REPLACEMENT/A DVANTAGE - PPO) [id number] Anneliese Zhang [id number] Anneliese Zhang Notes Date Note Type Note [...] mg/dLmicroalbumin <6 ug/mg Ria Louise MD [address] [facility], [facility] [address], [place], [address], [place] - S Sleep Number 04/15/2023 13:03:53 OBGyn Episode No OBEpisode recorded.
--- OUTSIDE RECORDS SUMMARY | 2025-02-04 00:51 | XMS_ITS | Encounter Summary ---
Author Organization [facility] Address [address] [place] [address] Care Team Providers Care Supervisor Screen Printing Name Role Phone Israel Cowan MD Primary Care Provider Ria Louise MD Unavailable Encounter Details Date Type Department Care Team (Late st Contact Info) Description 01/27/2020 Telephone [facility] ([facility]) [address] [place] [address] Domitila Zayas Social History Tobacco Use Types Packs/Day Years Used Date Smoking Tobacco: Never Comments No Sex and Gender Information Value Date Recorded Sex Assigned at Not on file Legal Sex Female 2:28 PM PAROLE DIRECTOR Gender Identity Not on file Sexual Orientation Not on file documented as of this encounter Plan of Treatment Not on file documented as of this encounter Visit Diagnoses Not on filedocumented in this encounter Additional Health Concerns Infection Onset Date Last Indicated Resolved Time COVID: Suspected 06/29/2020 06/29/2020 07/01/2020 5:36 AM PAROLE DIRECTOR COVID19 06/30/2020 06/30/2020 07/14/2020 3:07 AM PAROLE DIRECTOR COVID: Suspected 12/24/2023 12/24/2023 12/24/2023 8:49 PM CDT documented as of this encounter Care Teams Supervisor Screen Printing Relationship Specialty [place] [address] [place] [address] PCP - General 05/20/17 Ria Louise MD [address] [place] [address] Endocrinology 05/08/21 documented as of this encounter
--- OUTSIDE RECORDS SUMMARY | 2025-02-04 00:51 | XMS_ITS | Referral Summary ---
Author Organization [facility] Address [address] [place] [address] Care Team Providers Care Core Analyst Name Role Phone Israel Cowan MD Primary Care Provider Ria Louise MD Unavailable Encounters Date Type Department Care Team Description 01/25/2025 12:53 PM CDT - 01/25/2025 11:59 PM CDT Hospital Encounter [facility] [address] [place] [address] Encounter for screening mammogram for malignant neoplasm of breast Discharge Disposition: Discharge to home or self care 01/25/2025 12:53 PM CDT - 01/25/2025 11:59 PM CDT Hospital Encounter [facility] [address] [place] [address] Other lack of coordination Discharge Disposition: Discharge to home or self care 12/27/2024 [facility]phone [facility] [address] [place] [phone] Angel Zaidi MD FSL 3 Order 12/07/2024 1:56 PM CDT - 12/07/2024 11:59 PM CDT Hospital Encounter [facility] [address] [place] [address] Abnormal weight loss; Localized swelling, mass and lump, right upper limb Discharge Disposition: Discharge to home or self care 11/30/2024 Telephone [facility] [address] [place] [phone] Provider, MD Edinson Scheduling Appointments (Schedule [...] every morning 90 tablet 3 08/19/2024 08/19/19 Active semaglutide (OZEMPIC) 2 mg/dose (8 mg/3 mL) pen injector injectionIndica tions:Type 2 diabetes mellitus with hyperglycemia, with long-term current use of insulin (HCC) Inject 2 mg under the skin once a week 9 mL 3 08/19/2024 08/19/19 26 Active Active Problems Problem Noted Date Diagnosed Date Hyperlipidemia associated with type 2 diabetes m beauitus 02/02/2024 Assessment & Plan (08/19/2024 4:25 PM TOP AND TRIM WORKER): Chronic, stable Continue statin therapy Assessment & Plan (04/22/2024 11:12 AM CDT): Chronic problem. On statin therapy, no changes. Assessment & Plan (02/02/2024 9:25 PM CDT): Continue statin therapy Overweight with body mass in dex (BMI) of 27 to 27.9 in adult 02/02/2024 Assessment & Plan (08/19/2024 4:26 PM TOP AND TRIM WORKER): Chronic, progressively improving Advised to include resistance training/strength training exercises Assessment & Plan (02/02/2024 9:26 PM CDT): Counseled on diet and exercise Vitamin D deficiency 01/21/2024 Assessment & Plan (04/22/2024 11:12 AM CDT): Chronic problem, not at goal. Likely contributing to secondary hyperparathyroidism. Start vitamin D as discussed last visit. Multinodular goiter (nontoxic) 05/08/2021 Assessment & Plan (08/19/2024 4:25 PM TOP AND TRIM WORKER): History of multiple thyroid nodules at least [...] 10/29/2015 Assessment & Plan (08/19/2024 4:25 PM TOP AND TRIM WORKER): Chronic, well controlled Continue lisinopril/hydrochlorothiazide Assessment & Plan (04/22/2024 11:11 AM CDT): Chronic problem, Controlled on lisinopril HCT, carvedilol. No changes. Assessment & Plan (02/02/2024 9:26 PM CDT): Chronic, well controlled Continue Lisinopril- HCTZ Type 2 diabetes mellitus with hyperglycemia 10/16 Assessment & Plan (08/19/2024 4:26 PM TOP AND TRIM WORKER): Chronic, improving control Hemoglobin A1c 6.0%, at [...] on file Legal Sex Female 2:28 PM TOP AND TRIM WORKER Gender Identity Not on file Sexual Orientation Not on file Last Filed Vital Signs Vital Sign Reading Time Taken Comments Blood Pressure 130/70 08/19/2024 3:12 PM TOP AND TRIM WORKER Pulse 105 08/19/2024 3:12 PM TOP AND TRIM WORKER Temperature 36.8 C (98.2 F) 12/24/2023 4:06 PM CDT Respiratory Rate 16 08/19/2024 3:12 PM TOP AND TRIM WORKER Oxygen Saturation 98% 12/24/2023 10:30 PM CDT Inhaled Oxygen Concentration - - Weight 65.8 kg (145 lb) 01/25/2025 1:52 PM CDT Height 157.5 cm (5' 2) 01/25/2025 1:52 PM CDT Body Mass Index 26.52 01/25/2025 1:52 PM CDT Plan of Treatment Not on file Procedures Procedure Name Priority Date/Time Associated Diagnosis Comments MRI BRAIN WO CONTRAST Schedule Routine, Read Routine (OP Routine) 01/25/2025 1:36 PM CDT Other lack of coordination XR HAND RIGHT 3 OR MORE VIEWS Schedule Routine, Read Routine (OP Routine) 12/07/2024 2:35 PM CDT Localized swelling, mass and lump, right upper limb XR CHEST PA LATERAL 2 VIEWS Schedule Routine, Read Routine (OP Routine) 12/07/2024 2:35 PM CDT Abnormal weight loss POCT HEMOGLOBIN A1C Routine 08/19/2024 3:14 PM TOP AND TRIM WORKER Type 2 diabetes mellitus with hyperglycemia, with [...] 10:09 AM CDT DIGITAL MAMMOGRAPHY Routine 09/24/2013 10:17 AM TOP AND TRIM WORKER from Last 3 Months or Most Recently Relevant to Health Maintenance Results * MRI Brain WO Contrast (01/25/2025 1:36 PM CDT) Anatomical Region Laterality Modality Head and Neck N/A Magnetic Resonan ce 01/26/2025 10:0 8 AM CDT Narrative 01/26/2025 10:29 AM CDT EXAM DESCRIPTION: MRI BRAIN WO CONTRAST REASON FOR STUDY: r27.8 Poor balance, frequent falls, lack of coordination, no surgery TECHNIQUE: Multiplanar imaging includes non-contrasted T1, T2, FLAIR, and diffusion with ADC map sequences. Additional sequence(s) sensitive to blood products. Images stored on PACS. COMPARISON: Head CT 12/24/2023. FINDINGS: CEREBRUM: No hemorrhage, edema, or mass effect. WHITE MATTER: There is mild periventricular and subcortical T2/FLAIR hyperintense white matter disease, nonspecific, though likely secondary to chronic microvascular ischemia. POSTERIOR FOSSA: Brainstem and cerebellum appear unremarkable. DIFFUSION IMAGING: No recent infarction. EXTRAAXIAL SPACES: No hemorrhage. No mass. BRAIN VOLUME: Within normal limits for age. PITUITARY: Partially empty sella configuration. VASCULATURE: No flow disturbance identified. ORBITS: No masses. Globes normal. PARANASAL SINUSES AND MASTOIDS: Well-aerated with no fluid levels. No mucosa thickening. OTHER: No other significant finding. IMPRESSION: 1. No acute intracranial findings. 2. Mild burden of periventricular and subcortical T2/FLAIR hyperintense white matter disease, likely secondary to chronic microvascular ischemia. THIS IS AN ELECTRONICALLY VERIFIED FINAL REPORT 01/26/2025 10:29 AM - Electronically signed by Dominik Doan M.D. MZ: NAHUM Report ID: [id number] Reading Location: [id number] Procedure Note Dominik Doan MD - 01/26/2025 EXAM DESCRIPTION: MRI BRAIN WO CONTRAST REASON FOR STUDY: r27.8 Poor balance, frequent falls, lack of coordination, no surgery TECHNIQUE: Multiplanar imaging includes non-contrasted T1, T2, FLAIR, and diffusion with ADC map sequences. Additional sequence(s) sensitive [employer]. Images stored on PACS. COMPARISON: Head CT 12/24/2023. FINDINGS: CEREBRUM: No hemorrhage, edema, or mass effect. WHITE MATTER: There is mild periventricular and subcorticalT2/FLAIR hyperintense white matter disease, nonspecific, though likely secondaryto chronic microvascular ischemia. POSTERIOR FOSSA: Brainstem and cerebellum appear unremarkable. DIFFUSION IMAGING: No recent infarction. EXTRAAXIAL SPACES: No hemorrhage. No mass. BRAIN VOLUME: Within normal limits for age. PITUITARY: Partially empty sella configuration. VASCULATURE: No flow disturbance identified. ORBITS: No masses. Globes normal. PARANASAL SINUSES AND MASTOIDS: Well-aerated with no fluid levels. Nomucosa thickening. OTHER: No other significant finding. IMPRESSION: 1. No acute intracranial findings. 2. Mild burden of periventricular and subcortical T2/FLAIR hyperintense white matter disease, likely secondary to chronic microvascularischemia. THIS IS AN ELECTRONICALLY VERIFIED FINAL REPORT 01/26/2025 10:29 AM - Electronically signed by Dominik Doan M.D. MZ: MZ Report ID: [id number] Reading Location: [id number] Israel Cowan MD IM MRI PROCEDURES Ashley l Result * XR Hand Right 3 or More [...] Jm Champagne M.D. TH: TH Report ID: [id number] Reading Location: [id number] Procedure Note Jm Champagne MD - 12/09/2024 [...] Jm Champagne M.D. TH: TH Report ID: [id number] Reading Location: [place] [address] Israel Cowan MD IMSilvino XR PROCEDURES Final Result * XR Chest [...] 12/12/2024 7:57 AM - Electronically signed by Lmaine Villa M.D. RB: SCOTT Report ID: [id number] Reading Location: [id number] Procedure Note Lamine Villa MD - 12/12/2024 [...] Lamine Villa M.D. RB: SCOTT Report ID: [id number] Reading Location: [id number] Israel Cowan MD IMG XR PROCEDURES Final Result * POCT hemoglobin A1c (08/19/2024 3:14 PM TOP AND TRIM WORKER) Pathologist [facility] Hemoglobin A1C, POC 6.0 4.0 - 5.6 % Blood 08/19/2024 3:14 PM TOP AND TRIM WORKER Angel Stephen MD POINT OF CARE TEST [...] Ur 27 1 - 29 mg/g DENISE COATES Urine 01/21/2024 11:5 0 AM CDT 01/21/2024 6:48 PM CDT us Angel Stephen MD LAB URINE ORDERABLE S Final Result DENISE [address] [address] Department [place] [address] * Lipid panel (01/21/2024 11:50 AM CDT) [...] BLOOD ORDERABLE S Final Result DENISE COATES [id number] [address] Department [place] [address] * (ABNORMAL) eGFR (12/24/2023 8:02 PM CDT) [...] LAB BLOOD ORDERABLES Ashley l Result DENISE ZACK (LUIS MANUEL) 1 [facility] Department [place] [address] * DIABETES EYE EXAM (06/14/2023 8:00 AM CDT) Historical Provider HEALTH MAINTENANCE Edited Result - Final * Hepatitis panel, acute (12/18/2018 10:09 AM CDT) Hep A IgM Negative Negative DENISE DIXON (LUIS MANUEL) Comment:Testing performed by : [facility], [address] [place] [address], [place]., [address] Hep B core IgM Negative Negative DENISE DIXON (LUIS MANUEL) Comment:Testing performed by : [facility], [address] [place] [address], [place]., [address] Hep C Ab Negative Negative DENISE DIXON (LUIS MANUEL) Comment:Testing performed by : [facility], [address] [place] [address], [place]., [address] HepBsAg Nonreactive Nonreactive DENISE DIXON (LUIS MANUEL) Comment:Testing performed by : [facility], [address] [place] [address], [place]., [address] Blood specimen (specimen) 12/18/2018 10:09 AM CDT 12/18/2018 4:27 PM CDT Narrative DENISE DIXON (LUIS MANUEL) - 12/18/2018 8:01 PM CDT us Korey Mcrae MD LAB MICROBIOLOGY - GENERAL ORD ERABLES Final Result DENISE DIXON (LUIS MANUEL) 1 [facility] Department [place] [address] * DIGITAL MAMMOGRAPHY (09/24/2013 10:17 AM TOP AND TRIM WORKER) Anatomical Region Laterality Modality Breast Mammography 09/24/2013 10:1 7 AM TOP AND TRIM WORKER Narrative 09/30/2013 11:16 PM TOP AND TRIM WORKER Performed by: danya Screening [facility]amm Bi Acc#: [id number] DATE OF EXAM: Sep 24 2013 CLINICAL [...] BI-RADS CATEGORY 1 - NEGATIVE ADDENDUM: 09/30/13 /khadijah Comparison is made with prior film screen mammograms from [facility] of 01/04/10. Similar appearance to the prior [...] Performed by: danya Screening Mamm Bi Acc#: [id number] DATE OF EXAM: Sep 24 2013 CLINICAL [...] is made with prior film screenmammograms from [facility] of 01/04/10. Similarappearance to the prior study, [...] Attending DR: DR KAREN JORDAN Historical Provider IMSilvino MAMMO PROCEDURES Ashley l Result from Last 3 Months or Most Recently Relevant to Health Maintenance Insurance [facility] MEDICARE ADVANTAGE [facility] MEDICARE ADVANTAGE Advance Directives For more information, please contact: [phone] * Full Code (Latest Code Status on File) Date Activated Date Inactivated Comments 03/07/2020 5:23 PM 03/09/2020 4:25 PM Care Teams Core Analyst Relationship Specialty Start Date End Date Israel Cowan MD [address] [address] PCP - General 05/20/17 Ria Louise MD [address] [address] Endocrinology 05/08/21
--- OUTSIDE RECORDS SUMMARY | 2025-02-04 00:51 | XMS_ITS | Clinical Summary ---
Author Organization [facility] Address [address] [place] [address] Care Team Providers Care Electric Power Machine Operator Name Role Phone Israel Cowan MD Primary Care Provider Ria Louise MD Unavailable [phone] Allergies Active Allergy Reactions Criticality Noted Date [...] 02/02/2024 Assessment & Plan (08/19/2024 4:25 PM READY TO WEAR DEPARTMENT MANAGER): Chronic, stable Continue statin therapy Assessment & Plan (04/22/2024 11:12 AM CDT): Chronic problem. On statin therapy, no changes. Assessment & Plan (02/02/2024 9:25 PM CDT): Continue statin therapy Overweight with body mass in dex (BMI) of 27 to 27.9 in adult 02/02/2024 Assessment & Plan (08/19/2024 4:26 PM READY TO WEAR DEPARTMENT MANAGER): Chronic, progressively improving Advised to include resistance training/strength training exercises Assessment & Plan (02/02/2024 9:26 PM CDT): Counseled on diet and exercise Vitamin D deficiency 01/21/2024 Assessment & Plan (04/22/2024 11:12 AM CDT): Chronic problem, not at goal. Likely contributing to secondary hyperparathyroidism. Start vitamin D as discussed last visit. Multinodular goiter (nontoxic) 05/08/2021 Assessment & Plan (08/19/2024 4:25 PM READY TO WEAR DEPARTMENT MANAGER): History of multiple thyroid nodules at least [...] 10/29/2015 Assessment & Plan (08/19/2024 4:25 PM READY TO WEAR DEPARTMENT MANAGER): Chronic, well controlled Continue lisinopril/hydrochlorothiazide Assessment & Plan (04/22/2024 11:11 AM CDT): Chronic problem, Controlled on lisinopril HCT, carvedilol. No changes. Assessment & Plan (02/02/2024 9:26 PM CDT): Chronic, well controlled Continue Lisinopril- HCTZ Type 2 diabetes mellitus with hyperglycemia 10/16 Assessment & Plan (08/19/2024 4:26 PM READY TO WEAR DEPARTMENT MANAGER): Chronic, improving control Hemoglobin A1c 6.0%, at [...] - 01/25/2025 11:59 PM CDT Hospital Encounter [facility] [address] [place] [address] Encounter for screening mammogram for malignant neoplasm of breast Discharge Disposition: Discharge to home or self care 01/25/2025 12:53 PM CDT - 01/25/2025 11:59 PM CDT Hospital Encounter [facility] [address] [place] [address] Other lack of coordination Discharge Disposition: Discharge to home or self care 12/27/2024 Telephone [facility] [address] [address] Angel Zaidi MD FSL 3 Order 12/07/2024 1:56 PM CDT - 12/07/2024 11:59 PM CDT Hospital Encounter [facility] [address] [place] [address] Abnormal weight loss; Localized swelling, mass and lump, right upper limb Discharge Disposition: Discharge to home or self care 11/30/2024 Telephone [facility] [address] [facility] [address] [place] [address] Provider, MD Edinson Scheduling Appointments (Schedule referral appt.) from Last 3 Months Immunizations Immunization Administration Dates Next Due Influenza, Quadrivalent, Spl it, Preservative Free, Intramuscular 08/28/2016 Surgical History Surgery Date Site/Laterality Comments CHOLECYSTECTOMY HYSTERECTOMY 08/18/1993 - 08/17/1994 KNEE SURGERY Left ROTATOR CUFF REPAIR 08/18/2008 - 08/17/2009 Right THYROID LOBECTOMY Right SPINAL FUSION 08/18/2018 - 08/17/2019 BREAST BIOPSY 08/18/2017 Left nonsurgical breast biospy - benign Medical History Medical History Date Comments Diabetes [...] on file Legal Sex Female 2:28 PM READY TO WEAR DEPARTMENT MANAGER Gender Identity Not on file Sexual Orientation Not on file Obstetrics History Para Term AB IAB SAB Ectopic Multiple Livin g Live Births 7 7 7 Date Outcome GA Total Labor Labor/2nd/3rd Weight Sex Type Anes PTL Ruthann A1 A5 Name Clin Term Term Term Term Term Term Term Last Filed Vital Signs Vital Sign Reading Time Taken Comments Blood Pressure 130/70 08/19/2024 3:12 PM READY TO WEAR DEPARTMENT MANAGER Pulse 105 08/19/2024 3:12 PM READY TO WEAR DEPARTMENT MANAGER Temperature 36.8 C (98.2 F) 12/24/2023 4:06 PM CDT Respiratory Rate 16 08/19/2024 3:12 PM READY TO WEAR DEPARTMENT MANAGER Oxygen Saturation 98% 12/24/2023 10:30 PM CDT Inhaled Oxygen Concentration - - Weight 65.8 kg (145 lb) 01/25/2025 1:52 PM CDT Height 157.5 cm (5' 2) 01/25/2025 1:52 PM CDT Body Mass Index 26.52 01/25/2025 1:52 PM CDT Plan of Treatment Health Maintenance [...] POCT HEMOGLOBIN A1C Routine 08/19/2024 3:14 PM READY TO WEAR DEPARTMENT MANAGER Type 2 diabetes mellitus with hyperglycemia, with [...] CDT DIGITAL MAMMOGRAPHY Routine 09/24/2013 10:17 AM READY TO WEAR DEPARTMENT MANAGER from Last 3 Months or Most Recently [...] Dominik Doan M.D. MZ: NAHUM Report ID: [id number] Reading Location: [place] [address] Procedure Note Dominik Doan MD - 01/26/2025 EXAM DESCRIPTION: MRI BRAIN WO CONTRAST REASON FOR STUDY: r27.8 Poor balance, frequent falls, lack of coordination, no surgery TECHNIQUE: Multiplanar imaging includes non-contrasted T1, T2, FLAIR, and diffusion with ADC map sequences. Additional sequence(s) sensitive toblood products. Images stored on PACS. COMPARISON: Head [...] Dominik Doan M.D. MZ: MZ Report ID: [id number] Reading Location: [place] [address] Israel Cowan MD IM MRI PROCEDURES Ashley [...] Electronically signed by Jm Champagne M.D. TH: Report ID: [id number] Reading Location: [id number] Procedure Note Jm Champagne MD - 12/09/2024 [...] Jm Champagne M.D. TH: TH Report ID: [id number] Reading Location: [id number] Israel Cowan MD IMG XR PROCEDURES Final [...] Lamine Villa M.D. RB: RB Report ID: [id number] Reading Location: [id number] Procedure Note Lamine Villa MD - 12/12/2024 [...] Lamine Villa M.D. RB: RB Report ID: [id number] Reading Location: [id number] Israel Cowan MD IMG XR PROCEDURES Final Result * POCT hemoglobin A1c (08/19/2024 3:14 PM READY TO WEAR DEPARTMENT MANAGER) Hemoglobin A1C, POC 6.0 4.0 - 5.6 % Blood 08/19/2024 3:14 PM READY TO WEAR DEPARTMENT MANAGER Angel Stephen MD POINT OF CARE TEST ORDERABLES Final Result * Albumin Creatinine Ratio, Urine (01/21/2024 11:50 AM CDT) Albumin Ur 130.0 mg/L Comment: Interpretive Data No reference range established. Current interpretive data was last revised 2018. Creatinine Ur 489.4 mg/dL DENISE COATES Comment: Interpretive Data No reference range established. Current interpretive data was last revised 2018. Albumin Creatinine Ratio, Ur 27 1 - 29 mg/g DENISE COATES Urine 01/21/2024 11:5 0 AM CDT 01/21/2024 6:48 PM CDT Angel Stephen MD LAB URINE ORDERABLE S Final Result DENISE [address] Department [place] [address] * Lipid panel (01/21/2024 11:50 AM CDT) [...] on 2018. HDL 53 >=40 mg/dL DENISE Comment: Interpretive Data Ages < [...] 2018. LDL, calculated 91 <=129 mg/dL DENISE Comment: Interpretive Data Ages < [...] on 2018. Non-HDL Cholesterol 114 mg/dL DENISE Comment: Interpretive Data Ages < [...] BLOOD ORDERABLE S Final Result DENISE COATES [address] Department [place] [address] * (ABNORMAL) eGFR (12/24/2023 8:02 PM CDT) [...] LAB BLOOD ORDERABLES Ashley l Result DENISE [facility] [address] [facility] Department [place] [address] * HM DIABETES EYE EXAM (06/14/2023 8:00 AM CDT) Historical Provider HEALTH MAINTENANCE Edited Result - Final * Hepatitis panel, acute (12/18/2018 10:09 AM CDT) Hep A IgM Negative Negative DENISE DIXON (LUIS MANUEL) Comment:Testing performed by : [facility], [address] [place] [address]., [address] Hep B core IgM Negative Negative DENISE [facility] (LUIS MANUEL) Comment:Testing performed by : [facility], [address] [place] [address]., [address] Hep C Ab Negative Negative [facility] (LUIS MANUEL) Comment:Testing performed by : [facility], [address] [place] [address], [place]., [address] HepBsAg Nonreactive Nonreactive [facility] (LUIS MANUEL) Comment:Testing performed by : [facility], [address] [place] [address]., [address] Blood specimen (specimen) 12/18/2018 10:09 AM CDT 12/18/2018 4:27 PM CDT Narrative DENISE DIXON (LUIS MANUEL) - 12/18/2018 8:01 PM CDT us Korey Mcrae MD LAB MICROBIOLOGY - GENERAL ORD ERABLES Final Result DENISE DIXON (LUIS MANUEL) [address] [facility] Department [place] [address] * DIGITAL MAMMOGRAPHY (09/24/2013 10:17 AM READY TO WEAR DEPARTMENT MANAGER) Anatomical Region Laterality Modality Breast Mammography 09/24/2013 10:1 7 AM READY TO WEAR DEPARTMENT MANAGER Narrative 09/30/2013 11:16 PM READY TO WEAR DEPARTMENT MANAGER Performed by: danya Screening Mamm Bi Acc#: [id number] DATE OF EXAM: Sep 24 2013 CLINICAL [...] made with prior film screen mammograms from [facility] of 01/04/10. Similar appearance to [...] Performed by: danya Screening Mamm Bi Acc#: [id number] DATE OF EXAM: Sep 24 2013 CLINICAL [...] RECOMMENDED. BI-RADS CATEGORY 1 -NEGATIVE ADDENDUM: 09/30/13 Yamilet Comparison is made with prior film screenmammograms from [facility] of 01/04/10. Similarappearance to the [...] Most Recently Relevant to Health Maintenance Insurance [facility] MEDICARE [facility] MED[facility] Address: [address] [address] [place] [address] [employer] MEDICARE [facility] MED[facility] Address: [address] [address] [place] [address] Advance Directives For more information, please contact: [phone] * Full Code (Latest Code Status on File) Date Activated Date Inactivated Comments 03/07/2020 5:23 PM 03/09/2020 4:25 PM Care Teams Electric Power Machine Operator Relationship Specialty Start Date End Date Israel Cowan MD [address] [address] [facility] - General 05/20/17 [place] [address] [place] [address] [facility] 05/08/21
--- OUTSIDE RECORDS SUMMARY | 2025-02-04 00:52 | XMS_ITS ---
Author Name Auto Generated, Auto Generated Organization [facility] ice Address [address] [place] [address] Phone [phone] Care Team Providers Care Rn Diabetes Name Role Phone Emma Woods Unavailable [phone] Baldemar Gordon Unavailable [phone] Functional Status No Results Mental Status No [...]
--- OUTSIDE RECORDS SUMMARY | 2025-02-04 00:52 | XMS_ITS | Patient Health Record ---
Author Organization [facility] Address [address] [facility] [address] [place] [address] Care Team Providers Care Liquor Merchant Name Role Phone JOSH PUCKETT Unavailable [phone] Reason For Referral No Information Plan Of Treatment No Information Insurance Providers Payer Name Payer Address Payer Phone Subscriber Number Group Number Insured Name Patient Relationship to Insured Coverage Start Date Coverage End Date [employer] [address] [address] [place] [address] [id number] Anneliese Zhang Self - patient is the insured 2
--- OUTSIDE RECORDS SUMMARY | 2025-02-04 00:52 | XMS_ITS | CONTINUITY OF CARE DOCUMENT ---
Author Name dario bishop Address Unknown Organization [facility] Address [address] [place] [address] [address] [place] [address] Phone [phone] Care Team Providers Care Pallet Sorter Name Role Phone Boogie DINERO, Patito Unavailable IVÁN DAVIS MD Unavailable [phone] IVÁN DAVIS MD Unavailable PROBLEMS Condition Status Date Provider Notes GASTROESOPHAGEAL REFLUX DISEASE active [facility] CORONARY ARTERY DISEASE, FAM KAYLEE HX active [facility] FATHER PASSED AT AGE 60 YEARS HYPERLIPIDEMIA active [facility] DIABETES MELLITUS active [facility] DIAPHORESIS active [facility] DEPRESSION LEXAPRO 20 MG active Patito caceres MD SYNCOPE NL ECHO AND STRESS T EST IN 07/25 active Patito Hyman MD HYPERTENSION- MILD LVH, DIASTOLIC DYSFUNCTION, EF 65% 02/22 active ? Patito Hyman MD CHEST PAIN-RESOLVED. NEG NUC , EF 65% 02/22 active ? Patito Hyman MD ENCOUNTERS Date Type Provider Location Encounter Diag nosis - In-person encounter Office Visit Patito Hyman MD [facility] SYNCOPE NL ECHO AND STRESS TEST IN 07/25DEPRESSION LEXAPRO 20 MG - In-person encounter Office Visit Patito Hyman MD [facility] CHEST PAIN-RESOLVED. NEG NUC, EF 65% 02/22HYPERTENSION- MILD LVH, DIASTOLIC DYSFUNCTION, EF 65% 02/22DEPRESSION LEXAPRO 20 MG VITAL SIGNS Date Observation Value Provider pulse rate 84 /min Mally Elva oxygen saturation, oximetry 97 % Mally Elva respiratory rate E&M 19 /min Mally Elva weight E&M 207 [lb_av] Mally Elva blood pressure, diastolic 73 mm[Hg] Fe josé luis Elva blood pressure, systolic 109 mm[Hg] Fel icia [...] ORAL TABLET active ONE TAB. DAILY Lucinda [facility] METFORMIN HCL 500 MG ORAL TABLET completed [...] Payer name Policy type / Coverage type [place] red democrat ID AARP MEDICARE ADVANTAGE ([facility] COMPLETE PPO) Other [id number] TREATMENT PLAN Date Name Performer routine f/u [...]
--- OUTSIDE RECORDS SUMMARY | 2025-02-04 00:52 | XMS_ITS | Clinical Summary ---
Author Organization [facility] Address [address] [place] [address] Phone Care Team Providers Care Research Group Director Name Role Phone Israel Cowan MD Primary [...] Hepatitis C Virus (HCV) Screening 1955 Cologuard 2000 Immunochemical Fecal Occult Blood 2000 Zoster Immunization (1 of 2) 2005 Respiratory [...] - 145 mmol/L 06/14/2024 3:00 PM CDT [facility] POTASSIUM 3.5 3.5 - 5.1 mmol/L 06/14/2024 3:00 PM CDT [facility] CHLORIDE 97(L) 98 - 107 mmol/L 06/14/2024 3:00 PM CDT [facility] CO2, VENOUS 26 22 - 30 mmol/L 06/14/2024 3:00 PM CDT [facility] ANION GAP 17.5 <18.0 mmol/L 06/14/2024 3:00 PM CDT [facility] GLUCOSE 133(H) 70 - 99 mg/dL 06/14/2024 3:00 PM CDT [facility] BUN 19 10 - 20 mg/dL 06/14/2024 3:00 PM CDT [facility] CREATININE, BLOOD 1.75(H) 0.60 - 1.00 mg/dL 06/14/2024 3:00 PM CDT [facility] BUN/CREATININE RATIO 11(L) 12 - 20 ratio 06/14/2024 3:00 PM CDT [facility] TOTAL PROTEIN 9.1(H) 6.3 - 8.2 g/dL 06/14/2024 3:00 PM CDT [facility] ALBUMIN 4.4 3.5 - 5.0 g/dL 06/14/2024 3:00 PM CDT [facility] A/G RATIO 0.9(L) 1.0 - 2.2 06/14/2024 3:00 PM T [facility] CALCIUM 10.0 8.7 - 10.5 mg/dL 06/14/2024 3:00 PM T [facility] T BILI 1.5(H) 0.2 - 1.2 mg/dL 06/14/2024 3:00 PM CDT [facility] SGOT (AST) 21 5 - 34 U/L 06/14/2024 3:00 PM T [facility] Comment: Specimen is hemolyzed. In vitro hemolysis could affect results. Clinical correlation advised. SGPT (ALT) 16 0 - 55 U/L 06/14/2024 3:00 PM T [facility] ALKALINE PHOSPHATASE 82 40 - 150 U/L 06/14/2024 3:00 PM T [facility] GFR, ESTIMATED 31(L) >=60 06/14/2024 3:00 PM T [facility] Comment: Creatinine Clearance is the preferred criteria for selecting drug dose adjustments in renally impaired patients. The GFR is provided as additional pertinent clinical information. GFR is reported in mL/min/1.73 sq m. Calculation based on the Chronic Kidney Disease Epidemiology Collaboration (CKD- EPI) equation refit without adjustment for race. GFR, EST. 35(L) >=60 024 3:00 PM CDT [facility] GFR, EST. NONAFRICAN 29(L) >=60 06/14/2024 3:00 PM CDT [facility] Blood Venipuncture / Unknown 06/14/2024 2:28 PM CDT 06/14/2024 2:39 PM CDT Alonzo Theodore MD CHEMISTRY ORDERABLES Final Result Performing Organization Address City/[facility]/ZIP Co de Phone Number [facility] [address] [place] [address] * DINONA SCREENING BILATERAL WITH CAD (04/15/2018) Anatomical Region Laterality Modality breast Bilateral Mammography Israel Cowan MD IMG MAMMO ORDERABLES Fi nal Result * (ABNORMAL) Hemoglobin A1C (if indicated) (10/29/2015 8:38 PM CDT) HGB-A1C 6.6(H) 4.4 - 6.4 % 10/29/2015 9:00 PM CDT [facility] Est Average Glucose 142.7 mg/dL 10/29/2015 9:00 PM CDT [facility] Blood specimen (specimen) Butterfly Puncture / Unknown 10/29/2015 8:38 PM CDT 10/29/2015 8:42 PM CDT Narrative [facility] - 10/29/2015 9:00 PM CDT HEMOGLOBIN A1C: DIABETIC PATIENTS: WELL-CONTROLLED: 6.2 - 7.0 INTERMEDIATE WELL-CONTROLLED: 7.0 - 9.0 POORLY-CONTROLLED: >9.0 us Maggy Prescott FORENSIC SERGEANT, TRAIN EXAMINER CHEMISTRY ORDERAB LES Final Result Performing Organization Address City/[facility]/ZIP Co de Phone Number [facility] [address] [place] [address] from Last 3 Months or Most Recently Relevant to Health [place] [address] [place] [address] MEDICARE C [email or web address] Care Teams Research Group Director Relationship Specialty Start Date End Date Israel Cowan MD [address] [place] [address] PCP - General Internal Medicine 10/18/15
[2025-02-04 12:32] VITALS: BP 151/77; PULSE 80; RESP 20; TEMP 36.7; O2SAT 100
[2025-02-04 13:00] LABS: Glucose Point of Care 123 mg/dl (65-105)
--- NOTE | 2025-02-04 13:05 | P.PNAN_ITS ---
Anes - Initial Pre Proc Eval Procedure: Operation Date: 02/04/25 13:30 Proposed Procedures p Esophagogastroduodenoscopy & Colonoscopy - Drake Yoon MD Date/Time: 02/04/25 13:05 Surgeon: Drake Yoon MD Pre Op Diagnosis: Dysphagia, unspecified, Nausea, Screening Patient Data Age: 69 Gender: F Height: 1.57 m Weight: 67.8 kg Last Vital Signs Temp 98.1 F 02/04/25 12:32 Pulse 80 02/04/25 12:32 Resp 20 02/04/25 12:32 BP 151/77 H 02/04/25 12:32 Pulse Ox 100 02/04/25 12:32 O2 Del Method Room Air 02/04/25 12:32 Allergies Allergy/AdvReac Type Severity Reaction Status Date / Time lidocaine Allergy Severe ANAPHYLAXSI Verified 02/04/25 12:27 S prednisone Allergy Intermediate LEGS AND Verified 02/04/25 12:27 FEET SWELL insulin glargine (From Allergy Other Verified 02/04/25 12:27 Lantus U-100 Insulin) Home Medications ?Medication ?Instructions ?Recorded ?Confirmed ?Type aspirin 325 mg tablet 325 mg PO DAILY 11/19/23 02/04/25 History atorvastatin 40 mg tablet 40 mg PO DAILY 11/19/23 02/04/25 History carvedilol 12.5 mg tablet 3.125 mg PO Q12H 11/19/23 02/04/25 History empagliflozin 25 mg tablet 25 mg PO DAILY 11/19/23 02/04/25 History (Jardiance) lisinopril 20 1 tablet PO DAILY 11/19/23 02/04/25 History mg-hydrochlorothiazide 12.5 mg tablet semaglutide 1 mg/dose (4 mg/3 mL) 2 mg subcut WEEKLY 11/19/23 02/04/25 History subcutaneous pen injector (Ozempic) omeprazole 40 mg capsule,delayed 40 mg PO DAILY #30 caps 12/09/24 02/04/25 Rx release peg 3350-electrolytes 236 240 ml PO Q10M #4,000 mL 01/24/25 02/04/25 Rx gram-22.74 gram-6.74 gram-5.86 gram solution (Golytely) Laboratory Tests 02/04/25 12:57 POC Capillary Glucose 123 H mg/dl (65-105) Patient hx anesthesia problems: none Family hx anesthesia problems: none Results Review: All pre-operative results and documents have been reviewed as part of the pre- operative evaluation. [facility] Family History Family History Mother Hypertension Father Family history of heart disease in male family member before age 55 Family history of diabetes mellitus in first degree relative Other Cerebrovascular accident Diabetes mellitus Social History Social History Smoking status: Never smoker Alcohol intake: never Substance use type: does not use Do You Feel Safe in your Home?: Yes Lack of Transportation: No Lack of Food: Sometimes True Current Housing: I Have Housing Concerned About Future Housing: No Difficulty Paying Gas/Electric Bills: No Difficulty Paying for Meds: YES Currently Unemployed: YES Education: High School Diploma/GED Difficulty w/ Childcare or Family Care: No Living arrangements: with family Gender identity (if verbalized by the patient): Female Spiritual care concerns: No Anes - Eval Final PreProcedure Day of Procedure 02/04/25 13:05 Patient weight: normal Heart: regular rate and rhythm Lungs: clear to auscultation Airway: Mallampati scale class II Neurological: alert and oriented Last oral intake: >/= 8 hours ASA classification: III Emergent: no Anesthetic plan: proceed Anesthesia type and monitoring: general GIVS and standard monitoring Results Review: All pre-operative results and documents have been reviewed as part of the pre- operative evaluation. Informed Consent: The patient's anesthetic plan and its attendant risks and benefits were di scussed with the patient/family/POA. Questions were solicited and answers provided to the satisfaction of the patient/family/POA.
[2025-02-04] MEDS: LACTATED RINGERS 1,000 ML 150 ML IV CONT (13:06)
--- NOTE | 2025-02-04 14:08 | PM.HPGS ---
History of Present Illness History of Present Illness Consent: Risks, benefits, and alternatives have been discussed and questions answered. Patient agrees to proceed with procedure. Chief complaint: Dysphagia, unspecified, Nausea, Screening Narrative: Anneliese Zhang is a 69 year old female with gerd, last egd and colonoscopy 2017, also needs another screening colonoscopy Review of Systems Review of Systems: All systems reviewed & are unremarkable except as noted in HPI and below PMFSH Past Medical History Medical History (Updated 02/04/25 @ 14:09 by Drake Yoon MD) GERD (gastroesophageal reflux disease) Family History Family History Mother Hypertension Father Family history of heart disease in male family member before age 55 Family history of diabetes mellitus in first degree relative Other Cerebrovascular accident Diabetes mellitus Social History Social History Smoking status: Never smoker Alcohol intake: never Substance use type: does not use Do You Feel Safe in your Home?: Yes Lack of Transportation: No Lack of Food: Sometimes True Current Housing: I Have Housing Concerned About Future Housing: No Difficulty Paying Gas/Electric Bills: No Difficulty Paying for Meds: YES Currently Unemployed: YES Education: High School Diploma/GED Difficulty w/ Childcare or Family Care: No Living arrangements: with family Gender identity (if verbalized by the patient): Female Spiritual care concerns: No Meds Home Medications and Allergies Home Medications ?Medication ?Instructions ?Recorded ?Confirmed ?Type aspirin 325 mg tablet 325 mg PO DAILY 11/19/23 02/04/25 History atorvastatin 40 mg tablet 40 mg PO DAILY 11/19/23 02/04/25 History carvedilol 12.5 mg tablet 3.125 mg PO Q12H 11/19/23 02/04/25 History empagliflozin 25 mg tablet 25 mg PO DAILY 11/19/23 02/04/25 History (Jardiance) lisinopril 20 1 tablet PO DAILY 11/19/23 02/04/25 History mg-hydrochlorothiazide 12.5 mg tablet semaglutide 1 mg/dose (4 mg/3 mL) 2 mg subcut WEEKLY 11/19/23 02/04/25 History subcutaneous pen injector (Ozempic) omeprazole 40 mg capsule,delayed 40 mg PO DAILY #30 caps 12/09/24 02/04/25 Rx release peg 3350-electrolytes 236 240 ml PO Q10M #4,000 mL 01/24/25 02/04/25 Rx gram-22.74 gram-6.74 gram-5.86 gram solution (Golytely) Allergies Allergy/AdvReac Type Severity Reaction Status Date / Time lidocaine Allergy Severe ANAPHYLAXSI Verified 02/04/25 12:27 S prednisone Allergy Intermediate LEGS AND Verified 02/04/25 12:27 FEET SWELL insulin glargine (From Allergy Other Verified 02/04/25 12:27 Lantus U-100 Insulin) Vital Signs Vital Signs - 24 hr 02/04/25 12:32 Temperature 98.1 F Pulse Rate 80 Respiratory Rate 20 Blood Pressure 151/77 H Pulse Oximetry 100 Oxygen Delivery Room Air Exam Const: General: comfortable and no acute distress HENMT: Face/Nose/Sinus: Normal nares present Eyes: General: appearance normal, both eyes and all related structures Neck: Neck: no JVD Resp: Auscultation: clear to auscultation bilaterally Cardio: Rate: regular rate Rhythm: regular rhythm GI: Inspection: non-distended GI Palp: Yes Soft to palpation Skin: General skin exam: normal color Neuro: General: gait normal Speech: normal speech Extrem: General: normal to inspection Psych: Mental Status: mental status grossly normal Assessment and Plan Assessment and plan (1) Colon cancer screening: Code(s): Z12.11 - Encounter for screening for malignant neoplasm of colon Status: Acute Assessment and Plan: colonoscopy (2) GERD (gastroesophageal reflux disease): Code(s): K21.9 - Gastro-esophageal reflux disease without esophagitis Status: Acute Assessment and Plan: egd with bx
--- NOTE | 2025-02-04 14:27 | SUR.OPER ---
EGD end 1423 COLONOSCOPY START 1429
--- NOTE | 2025-02-04 14:35 | S_PTH ---
PATIENT: Anneliese Zhang LOC: [facility]#:[id number] AGE/SX: 69/F ROOM: RE02/04/[address]: Drake Yoon MD : 1955 BED: DIS: 02/04/2025 SPEC #: [id number] RECD: 02/07/25 07:51 STATUS: ELIF RECarie #: [id number] MOY: 02/04/25 14:[address]: Drake Yoon DEPT: [facility] Surgical RECD BY: Sienna Baptiste ENTERED: 02/07/25 07:52 SP TYPE: Surgical OTHR DR: Israel Cowan, MJennifer Tissues: A - Gastric Biopsy Procedures: Hematoxylin and Eosin Stain Gross and Microscopic Level 4
[2025-02-04 14:38] VITALS: BP 117/73; PULSE 78; RESP 25; O2SAT 98
[2025-02-04 14:48] VITALS: BP 123/71; PULSE 64; RESP 21; O2SAT 100
[2025-02-04 14:58] VITALS: BP 149/71; PULSE 63; RESP 20; O2SAT 100
[2025-02-04 15:25] LABS: HPYLORIRESULT Negative (Negative)
== END 2025-02-04 15:12 | disposition home or self-care (01) ==
PROVIDERS: PCP Internal Medicine Infectious Disease; Referring Provider Nurse Practitioner; Visit Provider Internal Medicine Gastroenterology
PROC: 0DJ08ZZ Inspection of Upper Intestinal Tract, Via Natural or Artificial Opening Endoscopic (ICD-10-PCS; CPT 45378; principal; 2025-02-04 13:30)
DX: Z12.11 Encounter for screening for malignant neoplasm of colon (principal); K57.30 Diverticulosis of large intestine without perforation or abscess without bleeding; K64.8 Other hemorrhoids; K29.70 Gastritis, unspecified, without bleeding
CPT/HCPCS: 43239; G0121; 82948; 87081; 88305; J2003; J2704; J7120